=== PATIENT | male | born 1975 ===

== ENCOUNTER 2017-02-06 04:50 | Observation (INO) | payer OTHER ==
[2017-02-06] MEDS ORDERED: ACETYLCYSTEINE IVPB STA (05:17)
[2017-02-06] MEDS ORDERED: DEXTROSE 5% IVPB STA (05:17)
[2017-02-06] MEDS ORDERED: WATER IVPB STA (05:17)
[2017-02-06] MEDS ORDERED: Sodium Chloride 0.9% 1,000 ML IV STA (05:28)
[2017-02-06 05:36] LABS: BASO % 0.3 % (0.0-2.0); EOS % 0.1 % (0.0-4.0); HEMOGLOBIN 15.3 g/dL (12.0-18.0); LYMPH # 1.7 K/uL (1.0-4.3); LYMPH % 22.7 % (20.0-40.0); MEAN CELL VOLUME 93.1 fl (80.0-94.0); MEAN CORPUSCULAR HEMOGLOBIN 31.7 pg (27.0-31.0); MONO # 0.5 K/uL (0.0-0.8); MONO % 6.1 % (0.0-10.0); NEUT # 5.3 K/uL (1.8-7.0); NEUT % 70.8 % (50.0-75.0); NRBC % 0.1 % (0.0-0.0); RBC 4.83 Mil/uL (4.40-5.90); RED CELL DISTRIBUTION WIDTH 14.2 % (11.5-14.5); WHITE BLOOD COUNT 7.5 K/uL (4.8-10.8)
[2017-02-06 05:38] LABS: SALICYLATE < 1.0 mg/dl
[2017-02-06 05:39] LABS: ACETAMINOPHEN < 10.0 ug/ml (10.0-30.0); BLOOD UREA NITROGEN 9 mg/dl (9-20); CALCIUM 9.4 mg/dL (8.4-10.2); GFR AFRICAN-AMERICAN > 60; GFR NON-AFRICAN AMERICAN > 60
--- NOTE | 2017-02-06 05:55 | ED PDOC ---
HPI: Psych/Substance Abuse Time Seen by Provider: 02/06/17 05:16 Chief Complaint (Nursing): Substance Abuse Chief Complaint (Provider): Substance Abuse History Per: Patient History/Exam Limitations: no limitations Onset/Duration Of Symptoms: Hrs (x1 hr CHANNELER) Current Symptoms Are (Timing): Still Present Suicide/Self Injury Attempted (Context): Ingestion Modifying Factor(s): Alcohol, Cocaine, Other (Tylenol) Additional Complaint(s): 41 year old male presents to ED due to substance abuse and has a history of depression. Patient states he was very stressed about his upcoming wedding and lack of family support. 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 Patient denies other drug use and notes that he stopped taking Eliquis x1 month ago. (-) chest pain, SOB, or leg swelling. PCP: [facility] Past Medical History Reviewed: Historical Data, Nursing Documentation, Vital Signs Vital Signs: Last Vital Signs Temp 98.8 F 02/06/17 05:13 Pulse 120 H 02/06/17 05:13 Resp 20 02/06/17 05:13 BP 143/89 02/06/17 05:13 Pulse Ox 95 02/06/17 05:13 - Medical History PMH: Bipolar Disorder, Depression, Deep Vein Thrombosis, Schizophrenia Denies: Diabetes, Hepatitis, HIV, HTN (Denies on admission), Kidney Stones, Chronic Kidney Disease, Seizures, Sexually Transmitted Disease - Family History Family History: States: No Known Family Hx - Living Arrangements Living Arrangements: With Family - Social History Alcohol: Other (Admits) Drugs: Cocaine, Other (Tylenol) - Immunization History Hx Tetanus Toxoid Vaccination: Yes Hx Influenza Vaccination: No Hx Pneumococcal Vaccination: No - Home Medications Home Medications: Ambulatory Orders Medication Instructions Recorded OLANZapine [Zyprexa Zydis] 10 mg PO HS #30 odt 08/08/16 Apixaban [Eliquis] 5 mg PO BID #60 tab 10/04/16 Citalopram [celEXA] 20 mg PO DAILY #30 tab 10/04/16 Divalproex [Depakote DR(*BID*)] 500 mg PO BID #60 tcp 10/04/16 Gabapentin [Neurontin] 300 mg PO TID #90 cap 10/04/16 traZODone [Desyrel] 50 mg PO HS PRN #30 tab 10/04/16 Promethazine DM [Phenergan DM 10 ml PO Q6 PRN #120 bottle 10/15/16 Syrup] levoFLOXacin [Levaquin] 750 mg PO DAILY #7 tab 10/15/16 - Allergies Allergies/Adverse Reactions: Allergies Allergy/AdvReac Type Severity Reaction Status Date / Time No Known Allergies Allergy Verified 02/06/17 05:13 Review of Systems ROS Statement: Except As Marked, All Systems Reviewed And Found Negative Cardiovascular: Negative for: Chest Pain Respiratory: Negative for: Shortness of Breath Musculoskeletal: Negative for: Other (Leg swelling) Psych: Positive for: Suicidal ideation (Attempt to OD) Physical Exam - Reviewed Nursing Documentation Reviewed: Yes Vital Signs Reviewed: Yes - Physical Exam Appears: Positive for: Non-toxic. Negative for: No Acute Distress Skin: Positive for: Normal Color, Warm, Dry Eye Exam: Positive for: Normal appearance Neck: Positive for: Normal Cardiovascular/Chest: Positive for: Regular Rate, Rhythm, Tachycardia Respiratory: Positive for: Normal Breath Sounds. Negative for: Respiratory Distress Gastrointestinal/Abdominal: Positive for: Normal Exam, Soft. Negative for: Tenderness Back: Positive for: Normal Inspection Extremity: Positive for: Normal ROM. Negative for: Deformity Neurologic/Psych: Positive for: Alert, Oriented, Mood/Affect (anxious appearing) . Negative for: Motor/Sensory Deficits - Laboratory Results Result Diagrams: 02/06/17 05:26 02/06/17 05:26 - ECG O2 Sat by Pulse Oximetry: 95 (RA) Pulse Ox Interpretation: Normal Medical Decision Making Medical Decision Makin Initial impression: suicidal gesture, mild Tylenol overdose Initial plan: * EKG * Acetaminophen * EtOH serum * Labs * UDrug screen * Salicylate * NS IV 0535 Acetylcysteine will not be needed due to low amount of acetaminophen ingested. Scribe Attestation: Documented by Danna Johnson acting as a scribe for Leno Bender MD. Scribe Attestation: All medical record entries made by the Scribe were at my direction and personally dictated by me. I have reviewed the chart and agree that the record accurately reflects my personal performance of the history, physical exam, medical decision making, and the department course for this patient. I have also personally directed, reviewed, and agree with the discharge instructions and disposition. Disposition - Clinical Impression Clinical Impression: Depressed, Alcohol intoxication - Disposition Referrals: Neville Beaulieu MD [Primary Care Provider] - Disposition: Transfer of Care Disposition Time: 07:00 Condition: STABLE Patient Signed Over To: Vicki Kam Handoff Comments: Pending labs and crisis evaluation
--- NOTE | 2017-02-06 07:19 | ED PDOC ---
- Laboratory Results Result Diagrams: 02/06/17 05:26 02/06/17 10:25 - ECG O2 Sat by Pulse Oximetry: 96 Medical Decision Making Medical Decision Making: Repeat Tylenol level <10. Pt medically cleared. Disposition - Clinical Impression Clinical Impression: Substance abuse - POA Present On Arrival: None - Disposition Disposition: Routine/Home Disposition Time: 12:53 Condition: STABLE Addendum Addendum: 02/06/17 07:[address] Pt signed out by Dr[address] Bender pending repeat Tylenol level and Crisis evaluation.
[2017-02-06 07:39] LABS: BARBITURATES, UR NEGATIVE (NEGATIVE); BENZODIAZEPINES, UR NEGATIVE (NEGATIVE); OPIATES, UR NEGATIVE (NEGATIVE); PHENCYCLIDINE, UR NEGATIVE (NEGATIVE)
--- NOTE | 2017-02-06 08:41 | CARD ---
APPROVED REPORT EKG Measurement Heart [id number] CO 142P49 [id number] <Conclusion> Sinus tachycardia Otherwise normal ECG
[2017-02-06 10:46] LABS: ALB/GLOB RATIO 1.1 (1.0-2.1); ALBUMIN 4.3 g/dL (3.5-5.0); ALT/SGPT 53 U/L (21-72); AST/SGOT 30 U/L (17-59); BLOOD UREA NITROGEN 7 mg/dl (9-20); CALCIUM 9.2 mg/dL (8.4-10.2); GFR AFRICAN-AMERICAN > 60; GFR NON-AFRICAN AMERICAN > 60
[2017-02-06 11:02] LABS: PROTHROMBIN TIME 11.4 Seconds (9.8-13.1)
[2017-02-06 11:03] LABS: PARTIAL THROMBOPLASTIN TIME 24.6 Seconds (25.6-37.1)
[2017-02-06 13:05] VITALS: BP 145/93; PULSE 83; RESP 18; TEMP 97.9; O2SAT 98
== END 2017-02-06 12:52 | disposition home or self-care (01) ==
LOC: H.ER 04:50 → H.EROBSV 08:07
PROVIDERS: ADMIT Emergency Medicine; ATTEND Emergency Medicine
DX: F14.10 Cocaine abuse, uncomplicated (principal); F10.129 Alcohol abuse with intoxication, unspecified; Y90.5 Blood alcohol level of 100-119 mg/100 ml; F12.10 Cannabis abuse, uncomplicated; F20.9 Schizophrenia, unspecified; F31.9 Bipolar disorder, unspecified; Z86.718 Personal history of other venous thrombosis and embolism; Z79.01 Long term (current) use of anticoagulants

== ENCOUNTER 2017-04-22 04:49 | Observation (INO) | payer OTHER ==
[2017-04-22 05:02] VITALS: RESP 16; TEMP 97.4; O2SAT 97
[2017-04-22] MEDS ORDERED: Sodium Chloride 0.9% 1,000 ML IV STA (05:11)
--- NOTE | 2017-04-22 05:30 | ED PDOC ---
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 Patient also complains of on/ off chest pain that has persisted for months. He admits to drinking 4 beers and smoking crack cocaine, but denies any other ingestion. The patient notes taking Eliquis in the past but stopped taking it in the past few months because he "felt better". PCP: Family Provider,NO Past Medical History Reviewed: Historical Data, Nursing Documentation, Vital Signs Vital Signs: Last Vital Signs Temp 97.4 F L 04/22/17 04:59 Pulse 121 H 04/22/17 04:59 Resp 16 04/22/17 04:59 BP 151/97 H 04/22/17 04:59 Pulse Ox 97 04/22/17 04:59 - Medical History PMH: Bipolar Disorder, Depression, Deep Vein Thrombosis, Pulmonary Embolism (no longer on eliquis), Schizophrenia Denies: Diabetes, Hepatitis, HIV, HTN (Denies on admission), Kidney Stones, Chronic Kidney Disease, Seizures, Sexually Transmitted Disease - Surgical History Surgical History: No Surg Hx - Family History Family History: States: Unknown Family Hx - Social History Alcohol: Other (4 beers) Drugs: Cocaine (smoked crack cocaine) - Immunization History Hx Tetanus Toxoid Vaccination: Yes Hx Influenza Vaccination: No Hx Pneumococcal Vaccination: No - Home Medications Home Medications: Ambulatory Orders Medication Instructions Recorded OLANZapine [Zyprexa Zydis] 10 mg PO HS #30 odt 08/08/16 Apixaban [Eliquis] 5 mg PO BID #60 tab 10/04/16 Citalopram [celEXA] 20 mg PO DAILY #30 tab 10/04/16 Divalproex [Depakote DR(*BID*)] 500 mg PO BID #60 tcp 10/04/16 Gabapentin [Neurontin] 300 mg PO TID #90 cap 10/04/16 traZODone [Desyrel] 50 mg PO HS PRN #30 tab 10/04/16 Promethazine DM [Phenergan DM 10 ml PO Q6 PRN #120 bottle 10/15/16 Syrup] levoFLOXacin [Levaquin] 750 mg PO DAILY #7 tab 10/15/16 Cephalexin [Keflex] 500 mg PO TID #21 capsule 03/09/17 Naproxen [Naprosyn Tab] 250 mg PO Q8 #12 tab 03/09/17 - Allergies Allergies/Adverse Reactions: Allergies Allergy/AdvReac Type Severity Reaction Status Date / Time No Known Allergies Allergy Verified 02/06/17 05:13 Review of Systems ROS Statement: Except As Marked, All Systems Reviewed And Found Negative Cardiovascular: Positive for: Chest Pain (on/off) Psych: Positive for: Suicidal ideation Physical Exam - Reviewed Nursing Documentation Reviewed: Yes Vital Signs Reviewed: Yes - Physical Exam Appears: Positive for: No Acute Distress Head Exam: Positive for: ATRAUMATIC, NORMOCEPHALIC Skin: Positive for: Normal Color, Warm, Dry Eye Exam: Positive for: Normal appearance ENT: Positive for: Normal ENT Inspection Neck: Positive for: Normal, Supple Cardiovascular/Chest: Positive for: Tachycardia Respiratory: Positive for: Normal Breath Sounds. Negative for: Respiratory Distress Gastrointestinal/Abdominal: Positive for: Normal Exam, Soft. Negative for: Tenderness Extremity: Positive for: Normal ROM. Negative for: Deformity Neurologic/Psych: Positive for: Alert, Mood/Affect (Depressed Affect) - Laboratory Results Result Diagrams: 04/22/17 06:12 04/22/17 06:12 - ECG ECG Rhythm: Positive for: Sinus Rhythm (normal) Rate: 97 (EKG read at 05:26) O2 Sat by Pulse Oximetry: 97 (RA) Pulse Ox Interpretation: Normal Medical Decision Making Medical Decision Making: Time: 04:58 Initial Impression: cocaine induced chest pain, suicidal ideation Initial Plan: -EKG -Acetaminophen -Alcohol Serum -Labs -Drug Screen Urine -Salicylate -Troponin I -Crisis Eval -D Dimer [COAG] -CXR -NS IV -1:1 Obs -ED Obs admission -Urinalysis *All further documentation will be recorded in ED Obs section Scribe Attestation: Documented by Nilo Clayton, acting as a scribe for Leno Bender MD Provider Scribe Attestation: All medical record entries made by the Scribe were at my direction and personally dictated by me. I have reviewed the chart and agree that the record accurately reflects my personal performance of the history, physical exam, medical decision making, and the department course for this patient. I have also personally directed, reviewed, and agree with the discharge instructions and disposition. ED OBSERVATION Date of observation admission: 04/22/17 Time of observation admission: 05:23 - Observation admission statement Patient is being placed in observation because:: Pending crisis eval - Goals of Observation Goals of observation are:: Psychiatric Diagnosis - Progress Note Progress Note: 04/22/17 06:34 Patient is resting comfortably. Vitals stable. 04/22/17 06:34 Patient will be signed out to Arturo Petit MD pending crisis eval. Disposition - Clinical Impression Clinical Impression: Alcohol intoxication, Suicidal ideations, Depressed - Disposition Disposition: Transfer of Care Disposition Time: 05:23 Condition: STABLE Patient Signed Over To: Arturo Petit (at 0700) Handoff Comments: Pending crisis eval - Pt Status Changed To: Hospital Disposition Of: Observation (ED Obs)
[2017-04-22 06:03] VITALS: PULSE 97
[2017-04-22 06:14] VITALS: BP 124/84
[2017-04-22 06:19] LABS: BASO % 0.4 % (0.0-2.0); HEMATOCRIT 48.2 % (35.0-51.0); LYMPH # 1.4 K/uL (1.0-4.3); LYMPH % 17.7 % (20.0-40.0); MEAN CELL VOLUME 93.3 fl (80.0-94.0); MEAN CORPUSCULAR HEMOGLOBIN 32.2 pg (27.0-31.0); MEAN CORPUSCULAR HGB CONC 34.5 g/dL (33.0-37.0); MEAN PLATELET VOLUME 8.4 fl (7.2-11.7); MONO # 0.5 K/uL (0.0-0.8); MONO % 5.7 % (0.0-10.0); NEUT # 6.1 K/uL (1.8-7.0); NEUT % 76.2 % (50.0-75.0); NRBC % 0.4 % (0.0-0.0); RED CELL DISTRIBUTION WIDTH 12.1 % (11.5-14.5)
[2017-04-22 06:23] LABS: RBC URINE 1 /hpf (0-3); URINE BILIRUBIN NEGATIVE (NEGATIVE); URINE BLOOD SMALL (NEGATIVE); URINE COLOR STRAW (YELLOW); URINE GLUCOSE (UA) NEG (Normal); URINE KETONE NEGATIVE (NEGATIVE); URINE LEUKOCYTE ESTERASE NEG Leu/uL (Negative); URINE PROTEIN NEGATIVE (NEGATIVE); URINE UROBILINOGEN 0.2-1.0 mg/dL (0.2-1.0); WBC URINE < 1 /hpf (0-5)
[2017-04-22 06:30] LABS: ALCOHOL SERUM 159 mg/dl (0-10); BLOOD UREA NITROGEN 6 mg/dl (9-20); CALCIUM 9.5 mg/dL (8.4-10.2); CARBON DIOXIDE 20 mmol/L (22-30); CHLORIDE 107 mmol/L (98-107); GFR AFRICAN-AMERICAN > 60; GLUCOSE,RANDOM 125 mg/dL (75-110); POTASSIUM 3.6 MMOL/L (3.6-5.0); SODIUM 144 mmol/l (132-148)
[2017-04-22] MEDS ORDERED: Sodium Chloride 0.9% 50 ML IV ONE (07:05)
[2017-04-22] MEDS ORDERED: Iodixanol 320 MG/ML 100 ML BOTTLE IV ONE (07:05)
--- NOTE | 2017-04-22 08:33 | CARD ---
APPROVED REPORT EKG Measurement Heart [id number] ME 154P55 [id number] <Conclusion> Normal sinus rhythm Normal ECG
--- NOTE | 2017-04-22 09:52 | ED PDOC ---
- Laboratory Results Result Diagrams: 04/22/17 06:12 04/22/17 06:12 - ECG O2 Sat by Pulse Oximetry: 97 (RA) Disposition - Clinical Impression Clinical Impression: Alcohol intoxication, Suicidal ideations, Depressed, Polysubstance abuse - POA Present On Arrival: None - Disposition Disposition: Routine/Home Disposition Time: 09:52 Condition: FAIR
--- NOTE | 2017-04-22 10:39 | CT ---
PROCEDURE: CT Chest with contrast (Pulmonary Angiogram) HISTORY: r/o PE COMPARISON: Comparison is made to 10/11/2016 TECHNIQUE: Axial computed tomography images were obtained of the chest in the pulmonary arterial phase of enhancement. Coronal and sagittal reformatted images were created and reviewed. Intravenous contrast dose: 80 mL of Visipaque 320. Radiation dose: Total exam DLP = 367.7 mGy-cm. This CT exam was performed using one or more of the following dose reduction techniques: Automated exposure control, adjustment of the mA and/or kV according to patient size, and/or use of iterative reconstruction technique. FINDINGS: PULMONARY ARTERIES: Unremarkable. No pulmonary embolism. AORTA: No acute findings. No thoracic aortic aneurysm. LUNGS: No evidence of pneumonia or mass lesion in the lungs. PLEURAL SPACES: Unremarkable. No effusion or pneuomothorax. HEART: The heart is mildly to moderately enlarged. No evidence of pericardial effusion. LYMPH NODES: No lymphadenopathy. BONES, CHEST WALL: Unremarkable. No fracture or destructive lesion OTHER FINDINGS: Unremarkable. IMPRESSION: No evidence of pulmonary embolus. Cardiomegaly. No evidence of pneumonia or acute pathology in the lungs. .
--- NOTE | 2017-04-22 14:04 | RAD ---
HISTORY: cp, si COMPARISON: Comparison chest 10/24/2016 FINDINGS: LUNGS: Poor inspiration with low lung volumes, crowded bronchovascular markings and mild bibasilar atelectasis. Central pulmonary vasculature is slightly increased though this is felt to be due low lung volumes as well. PLEURA: No significant pleural effusion identified, no pneumothorax apparent. CARDIOVASCULAR: Heart appears enlarged. OSSEOUS STRUCTURES: No significant abnormalities. VISUALIZED UPPER ABDOMEN: Normal. OTHER FINDINGS: None. IMPRESSION: Poor inspiration with low lung volumes, crowded bronchovascular markings and mild bibasilar atelectasis. Central pulmonary vasculature is slightly increased though this is felt to be due low lung volumes as well.
== END 2017-04-22 10:50 | disposition home or self-care (01) ==
LOC: H.ER 04:49 → H.EROBSV 05:23
PROVIDERS: ADMIT Emergency Medicine; ATTEND Emergency Medicine
DX: F10.129 Alcohol abuse with intoxication, unspecified (principal); F14.188 Cocaine abuse with other cocaine-induced disorder; R07.9 Chest pain, unspecified; R45.851 Suicidal ideations; F32.9 Major depressive disorder, single episode, unspecified; Z86.711 Personal history of pulmonary embolism; Y90.6 Blood alcohol level of 120-199 mg/100 ml; Z86.718 Personal history of other venous thrombosis and embolism
CPT/HCPCS: 36415; 71010; 71275; 80048; 80320; 80324; 80329; 80345; 80346; 80349; 80353; 80358; 80361; 81003; 83992; 84484; 85025; 85378; 93005; 99284; G0378; Q9967

== ENCOUNTER 2017-12-22 04:21 | Inpatient (IN) | payer SELFPAY ==
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
[2017-12-22 05:51] LABS: BASO # 0.1 K/uL (0.0-0.2); BASO % 0.7 % (0.0-2.0); EOS % 0.4 % (0.0-4.0); HEMOGLOBIN 16.5 g/dL (12.0-18.0); LYMPH # 3.3 K/uL (1.0-4.3); LYMPH % 36.6 % (20.0-40.0); MEAN CELL VOLUME 91.7 fl (80.0-94.0); MEAN CORPUSCULAR HEMOGLOBIN 32.3 pg (27.0-31.0); MEAN CORPUSCULAR HGB CONC 35.2 g/dL (33.0-37.0); MEAN PLATELET VOLUME 7.4 fl (7.2-11.7); MONO # 0.6 K/uL (0.0-0.8); MONO % 6.9 % (0.0-10.0); NEUT % 55.4 % (50.0-75.0); NRBC % 0.1 % (0.0-0.0); RBC 5.09 Mil/uL (4.40-5.90); RED CELL DISTRIBUTION WIDTH 12.9 % (11.5-14.5)
[2017-12-22 06:01] LABS: ALBUMIN 4.4 g/dL (3.5-5.0); ALT/SGPT 128 U/L (21-72); AST/SGOT 61 U/L (17-59); BLOOD UREA NITROGEN 9 mg/dl (9-20); CALCIUM 9.1 mg/dL (8.4-10.2); GFR AFRICAN-AMERICAN > 60; GFR NON-AFRICAN AMERICAN > 60
[2017-12-22 06:11] LABS: BARBITURATES, UR NEGATIVE (NEGATIVE); BENZODIAZEPINES, UR NEGATIVE (NEGATIVE); OPIATES, UR NEGATIVE (NEGATIVE); PHENCYCLIDINE, UR NEGATIVE (NEGATIVE)
--- NOTE | 2017-12-22 09:13 | RAD ---
HISTORY: admit COMPARISON: 04/22/2017 FINDINGS: LUNGS: No active pulmonary disease. PLEURA: No significant pleural effusion identified, no pneumothorax apparent. CARDIOVASCULAR: Normal. OSSEOUS STRUCTURES: No significant abnormalities. VISUALIZED UPPER ABDOMEN: Normal. OTHER FINDINGS: None. IMPRESSION: No active disease.
[2017-12-22 09:42] VITALS: BP 128/81; PULSE 89; RESP 20; TEMP 98
--- NOTE | 2017-12-22 10:44 | CARD ---
APPROVED REPORT EKG Measurement Heart [id number] ND 172P41 [id number] <Conclusion> Normal sinus rhythm Nonspecific ST and T wave abnormality Abnormal ECG
--- NOTE | 2017-12-22 14:29 | PCM.BM ---
Treatment Plan Problems - Problems identified on initial assessmt feelings of worthlessness Date Initiated: 12/22/17 Time Initiated: 14:28 Assessment reference: NA Status: Active FEELINGS OF WORTHLINESS Time Initiated: Assessment reference: NA FEELINGS OF WORTHLLESSNESS Assessment reference: NA Status: Active FEELINGS OF WORTHLESSNESS Date Initiated: 12/22/17 Time Initiated: 14:28 Assessment reference: NA Status: Active Treatment assets and liabiliti Patient Assests: resourceful, self-reliant, ADL independent, physically healthy , negotiates basic needs Patient Liabilities: financial problems, relationship conflicts, substance abuse - Milieu Protocol Maintain good personal hygiene: daily Encourage regular showers, daily Remind patient to perform daily oral care, daily Assist patient to perform ADL's Conduct patient checks and document Observation sheet: Q15 minutes Maintain personal safety: every shift Educate patient to report safety concerns to staff, every shift Monitor environment for contraband/sharps Medication safety: Monitor for expected outcome, potential side effects: every shift, Assess barriers to learning: every shift, Assess readiness for medication education: every shift
[2017-12-22] MEDS ORDERED: Magnesium Hydroxide Susp 30 ml UD PO PRN (16:55)
[2017-12-22] MEDS ORDERED: DiphenhydrAMINE 50 mg/ml Inj IM PRN (16:55)
[2017-12-22] MEDS ORDERED: Alum-Mag Hydrox-Simethicone Susp (30 mL) PO PRN (16:55)
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
--- NOTE | 2017-12-22 18:29 | PCM.BM ---
Treatment Plan Problems - Problems identified on initial assessmt feelings of worthliness Date Initiated: 12/22/17 Time Initiated: 14:28 Assessment reference: NA Status: Active FEELINGS OF WORTHLINESS Date Initiated: 12/22/17 Status: Active FEELINGS OF WORTHLLESSNESS Date Initiated: 12/22/17 Time Initiated: 14:28 FEELINGS OF WORTHLESSNESS Date Initiated: 12/22/17 Time Initiated: 18:28 Assessment reference: NA Status: Active Treatment assets and liabiliti Patient Assests: cooperative, ADL independent, physically healthy, good support system Patient Liabilities: financial problems, relationship conflicts, substance abuse - Milieu Protocol Maintain good personal hygiene: daily Encourage regular showers, daily Remind patient to perform daily oral care, daily Assist patient to perform ADL's Conduct patient checks and document Observation sheet: Q15 minutes Maintain personal safety: every shift Educate patient to report safety concerns to staff, every shift Monitor environment for contraband/sharps Medication safety: Monitor for expected outcome, potential side effects: every shift, Assess barriers to learning: every shift, Assess readiness for medication education: every shift Milieu Narrative: inpt admission per attending vital signs and clinical assessment per protocol and per clinical status hospitalist consult prns per protocol assess for possible withdrawal although pt reports episodic binge drinking was singular occurrence day prior and day of admission disccharge planning progress Discharge/Continuing Care - Treatment Team Participation Patient/Family/SO Statement: inpt admission per attending vital signs and clinical assessment per protocol and per clinical status hospitalist consult prns per protocol assess for possible withdrawal although pt reports episodic binge drinking was singular occurrence day prior and day of admission disccharge planning progress
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
[2017-12-22 22:12] VITALS: O2SAT 98
== END 2017-12-22 20:45 | disposition left against medical advice (07) | DRG 894 ==
LOC: H.ER 04:21 → H.ERHOLD 06:21 → H.PSYCH 09:49
PROVIDERS: ADMIT Psychiatry & Neurology Psychiatry; ATTEND Psychiatry & Neurology Psychiatry
DX: F10.929 Alcohol use, unspecified with intoxication, unspecified (principal); Y90.6 Blood alcohol level of 120-199 mg/100 ml; Z86.711 Personal history of pulmonary embolism; Z91.14 Patient's other noncompliance with medication regimen; Z86.718 Personal history of other venous thrombosis and embolism

== ENCOUNTER 2018-01-18 05:35 | Inpatient (IN) | payer OTHER ==
[2018-01-18] MEDS ORDERED: Sodium Chloride 0.9% 1,000 ML IV STA (06:21)
[2018-01-18 06:29] LABS: BASO % 0.5 % (0.0-2.0); EOS % 0.1 % (0.0-4.0); HEMOGLOBIN 16.3 g/dL (12.0-18.0); LYMPH # 1.7 K/uL (1.0-4.3); LYMPH % 17.7 % (20.0-40.0); MEAN CELL VOLUME 92.3 fl (80.0-94.0); MEAN CORPUSCULAR HEMOGLOBIN 32.3 pg (27.0-31.0); MEAN PLATELET VOLUME 7.9 fl (7.2-11.7); MONO # 0.4 K/uL (0.0-0.8); MONO % 4.7 % (0.0-10.0); NEUT # 7.2 K/uL (1.8-7.0); NRBC % 0.1 % (0.0-0.0); RBC 5.05 Mil/uL (4.40-5.90); RED CELL DISTRIBUTION WIDTH 12.6 % (11.5-14.5); WHITE BLOOD COUNT 9.4 K/uL (4.8-10.8)
--- NOTE | 2018-01-18 06:29 | ED PDOC ---
HPI: Psych/Substance Abuse Time Seen by Provider: 01/18/18 05:46 Chief Complaint (Nursing): Psychiatric Evaluation Chief Complaint (Provider): psychiatrc evaluation History Per: Patient History/Exam Limitations: no limitations Onset/Duration Of Symptoms: Days Current Symptoms Are (Timing): Still Present Suicide/Self Injury Attempted (Context): Ingestion (x6 tablets of unknown painkiller pills) Associated Symptoms: Suicidal Thoughts, Suicidal Plan Involuntary Hold By: None Additional Complaint(s): Billy Underwood is a 42 year old male, with a past medical history of depression and drug abuse, who presents to the emergency department for suicidal ideation. Patient reports feeling suicidal stating he has no family support. Patient reports sniffing "three 20s" of cocaine and ingesting x6 tablets of unknown painkillers that his friend gave him. He denies any other drug or alcohol use. He denies any chest pain or shortness of breath. No further medical complaints. PMD: None provided. Past Medical History Reviewed: Historical Data, Nursing Documentation, Vital Signs Vital Signs: Last Vital Signs Temp 98.9 F 01/18/18 05:39 Pulse 113 H 01/18/18 05:39 Resp 16 01/18/18 05:39 BP 149/82 01/18/18 05:39 Pulse Ox 96 01/18/18 05:39 - Medical History PMH: Anxiety, Bipolar Disorder, Depression, Deep Vein Thrombosis, Pulmonary Embolism (no longer on eliquis), Schizophrenia Denies: Diabetes, Hepatitis, HIV, HTN (Denies on admission), Kidney Stones, Chronic Kidney Disease, Seizures, Sexually Transmitted Disease - Surgical History Surgical History: No Surg Hx - Family History Family History: States: Unknown Family Hx - Social History Current smoker - smoking cessation education provided: Yes (Current some days smoker) Alcohol: Social Drugs: Cocaine - Immunization History Hx Tetanus Toxoid Vaccination: Yes Hx Influenza Vaccination: No Hx Pneumococcal Vaccination: No - Home Medications Home Medications: Ambulatory Orders Medication Instructions Recorded No Known Home Med 01/18/18 - Allergies Allergies/Adverse Reactions: Allergies Allergy/AdvReac Type Severity Reaction Status Date / Time No Known Allergies Allergy Verified 02/06/17 05:13 Review of Systems ROS Statement: Except As Marked, All Systems Reviewed And Found Negative Cardiovascular: Negative for: Chest Pain Respiratory: Negative for: Shortness of Breath Psych: Positive for: Suicidal ideation Physical Exam - Reviewed Nursing Documentation Reviewed: Yes Vital Signs Reviewed: Yes - Physical Exam Appears: Positive for: Non-toxic Head Exam: Positive for: ATRAUMATIC, NORMOCEPHALIC Skin: Positive for: Normal Color, Warm, Dry Eye Exam: Positive for: Normal appearance, EOMI, PERRL Neck: Positive for: Painless ROM, Supple Cardiovascular/Chest: Positive for: Regular Rate, Rhythm. Negative for: Murmur Respiratory: Positive for: Normal Breath Sounds. Negative for: Respiratory Distress Gastrointestinal/Abdominal: Positive for: Normal Exam, Soft. Negative for: Tenderness, Guarding, Rebound Back: Negative for: L CVA Tenderness, R CVA Tenderness, Vertebral Tenderness Extremity: Positive for: Normal ROM (upper and lower extremities). Negative for : Deformity, Swelling Neurologic/Psych: Positive for: Alert, Oriented, Mood/Affect (depressed) - Laboratory Results Result Diagrams: 01/18/18 06:15 01/18/18 06:15 - ECG O2 Sat by Pulse Oximetry: 96 (RA) Pulse Ox Interpretation: Normal Medical Decision Making Medical Decision Making: Time: 05:46 A/P: 42 y/o male presents with suicidal ideation w/ attempt by using drugs. -Patient is well appearing at this time with normal mentation. Will get medical clearance from blood work and urine studies, will get crisis evaluation Plan: --EKG --Acetaminophen --Alcohol serum --BMP --Drug screen, urine --Salicylate --CBC w/ differential --Sodium Chloride 1,000 ml IV 1,000 mls/hr --1:1 Observation --Urinalysis --Reevaluation 07:00 -Patient will be endorsed to Dr. Kam, pending labs and reevaluation. ----- Scribe Attestation: Documented by Glen Isaacs, acting as a scribe for Leno Bender MD. Provider Scribe Attestation: All medical record entries made by the Scribe were at my direction and personally dictated by me. I have reviewed the chart and agree that the record accurately reflects my personal performance of the history, physical exam, medical decision making, and the department course for this patient. I have also personally directed, reviewed, and agree with the discharge instructions and disposition. Disposition - Clinical Impression Clinical Impression: Major depression - Patient ED Disposition Is Patient to be Admitted: Transfer of Care - Disposition Disposition: Transfer of Care Disposition Time: 07:00 Condition: STABLE Patient Signed Over To: Vicki Kam Handoff Comments: pending labs, crisis eval, and reevaluation
[2018-01-18 06:36] LABS: SQUAMOUS EPITHIAL < 1 /hpf (0-5); URINE BILIRUBIN NEGATIVE (NEGATIVE); URINE BLOOD MODERATE (NEGATIVE); URINE CLARITY SLIGHTY-CLOUDY (Clear); URINE COLOR YELLOW (YELLOW); URINE GLUCOSE (UA) NEG (Normal); URINE HYALINE CAST 0-2 /hpf (0-2); URINE LEUKOCYTE ESTERASE NEG Leu/uL (Negative); URINE PROTEIN 30 mg/dL (NEGATIVE); URINE UROBILINOGEN 0.2-1.0 mg/dL (0.2-1.0)
[2018-01-18 06:41] LABS: BLOOD UREA NITROGEN 8 mg/dl (9-20); CALCIUM 9.1 mg/dL (8.4-10.2); GFR AFRICAN-AMERICAN > 60; GFR NON-AFRICAN AMERICAN > 60
[2018-01-18 07:05] LABS: BARBITURATES, UR NEGATIVE (NEGATIVE); BENZODIAZEPINES, UR NEGATIVE (NEGATIVE); OPIATES, UR NEGATIVE (NEGATIVE); PHENCYCLIDINE, UR NEGATIVE (NEGATIVE)
--- NOTE | 2018-01-18 07:16 | ED PDOC ---
- Laboratory Results Result Diagrams: 01/18/18 06:15 01/18/18 06:15 - ECG O2 Sat by Pulse Oximetry: 96 (RA) Medical Decision Making Medical Decision Makin:00 Patient care is endorsed from Dr. Bender to Dr. Kam pending labs and reevaluation. Scribe Attestation: Documented by Amanda Arita, acting as a scribe for Vicik Kam MD. Provider Scribe Attestation: All medical entries made by the Scribe were at my direction and personally dictated by me. I have reviewed the chart and agree that the record accurately reflects my personal performance of the history, physical exam, medical decision making, and the department course for this patient. I have also personally directed, reviewed, and agree with the discharge instructions and disposition. Disposition - Clinical Impression Clinical Impression: Substance induced mood disorder - POA Present On Arrival: None - Disposition Disposition: Admitted as In-Patient Disposition Time: 08:13 Condition: STABLE
[2018-01-18] MEDS ORDERED: Alum-Mag Hydrox-Simethicone Susp (30 mL) PO PRN (10:37)
[2018-01-18] MEDS ORDERED: Magnesium Hydroxide Susp 30 ml UD PO PRN (10:37)
[2018-01-18] MEDS ORDERED: DiphenhydrAMINE 50 mg/ml Inj IM PRN (10:37)
--- NOTE | 2018-01-18 12:43 | PCM.BM ---
<Maxx Herman - Last Filed: 01/18/18 12:41> Treatment Plan Problems - Problems identified on initial assessmt Hopelessness/Helplessness Date Initiated: 01/18/18 Time Initiated: 12:00 Assessment reference: NA Status: Active Treatment assets and liabiliti Patient Assests: cooperative, educated, insightful, ADL independent, physically healthy, good support system Patient Liabilities: financial problems, relationship conflicts, substance abuse - Milieu Protocol Maintain good personal hygiene: every shift Encourage regular showers, every shift Remind patient to perform daily oral care, every shift Assist patient to perform ADL's Maintain personal safety: every shift Educate patient to report safety concerns to staff, every shift Monitor environment for contraband/sharps Medication safety: Monitor for expected outcome, potential side effects: every shift, Assess barriers to learning: every shift, Assess readiness for medication education: every shift <Nash Allan - Last Filed: 01/22/18 18:42> Family Contact Family involvement: Family/SO is involved Family contact: Patient declines to allow family contact at present Family contact name: Pt declined. - Outside Agency Agency 1 Care involvment: Information-sharing Agency contact name: Vincent Carvajal Agency contact number: [phone] - Goals for Treatment Patient goals for treatment: Pt is future focused and discharged focus and is requesting to follow-up with vincent cruz upon discharge. Pt reported that the current medications are helping his mood. Discharge/Continuing Care - Education Needs Education Needs: Patient Medication, Patient Diagnosis/Disease Process, Patient Coping Skills, Patient Community resources, Patient Aftercare Safety Plan - Discharge Discharge Criteria: Tolerates medication w/o severe side effects, Free of Suicidal thoughts, Free of paranoid thoughts, Free of agitation, Normal sleep pattern, Ability to care for self, No longer exhibiting s/s of withdrawal, Reduction of target symptoms Discharge to:: Home, With Family - Treatment Team Participation Patient/Family/SO Statement: 01/22/18 18:45 Pt spoke about his he still experiences auditory hallucinations, but reported that he then prays and feels that the hallucinations lessen. It was discussed with pt that his Wellbutrin and Risperdal will be increased. Discussed with Family/SO: No Was Patient/Family/SO present at Treatment Team Meeting: Yes <Byron Szymanski - Last Filed: 01/23/18 10:10> - Diagnosis (1) Substance induced mood disorder Status: Acute Interventions: motivational therapy 01/23/18 10:10
--- NOTE | 2018-01-18 17:36 | CP.PCM.HP ---
History of Present Illness - History of Present Illness History of Present Illness: 42 year old male, with PMHX remarkable for DVT/PE, and extensive psych history, presented to [facility] ED last night for evaluation of suicidal ideation. He reports he felt lonely and had no family support, causing him to think about harming himself. He reports he sniffed approx "three 20s" of cocaine and ingested about 6 tablets of unknown painkillers that his friend gave him. He also reports consuming between 2-4 beers last night. He reports having suicidal ideation at the time, but with no plan. He currently denies any suicidal ideation at bedside. He reports he has been generally in a state of good health otherwise. He currently denies any fevers/chills, headaches, changes in vision, CP/SOB/Palpitations, N/V/D/C, urinary symptoms, leg/calf pain, SI/HI, visual/ auditory hallucinations. ROS: 12 systems reviewed, found to be negative, unless otherwise mentioned in HPI PMD: FLY/Jake last vist 10/2016 PMHx: DVT/PE 2017, MTHFR mutation, HepC-active, Depression, Bipolar Schziophrenia Meds: pt does not remember med list, d/c'ed Eliquis on his own 8 months ago PSsurgHx: Denies FamilyHx: unknown SocialHx: occasional ETOH, intermittent illicit drug abuse (cocaine) ALL: NKDA Present on Admission - Present on Admission Any Indicators Present on Admission: Yes History of DVT/PE: Yes History of Uncontrolled Diabetes: No Urinary Catheter: No Decubitus Ulcer Present: No Review of Systems - Review of Systems All systems: reviewed and no additional remarkable complaints except (as per HPI ) Past Patient History - Past Medical History & Family History Past Medical History?: Yes Past Family History: Reviewed and not pertinent - Past Social History Alcohol: Social Drugs: Cocaine - CARDIAC Hx Cardiac Disorders: No - PULMONARY Hx Tuberculosis: No - NEUROLOGICAL HX Cerebrovascular Accident: No Hx Seizures: No - HEENT Hx HEENT Problems: No - RENAL Hx Chronic Kidney Disease: No Hx Kidney Stones: No - ENDOCRINE/METABOLIC Hx Endocrine Disorders: Yes - HEMATOLOGICAL/ONCOLOGICAL Hx Cancer: No Hx Human Immunodeficiency Virus (HIV): No - INTEGUMENTARY Hx Dermatological Problems: No - MUSCULOSKELETAL/RHEUMATOLOGICAL Hx Musculoskeletal Disorders: No Hx Falls: No - GASTROINTESTINAL Hx Gastrointestinal Disorders: No - GENITOURINARY/GYNECOLOGICAL Hx Sexually Transmitted Disorders: No - PSYCHIATRIC Hx Substance Use: Yes - SURGICAL HISTORY Hx Surgeries: No - ANESTHESIA Hx Anesthesia: No Hx Anesthesia Reactions: No Hx Malignant Hyperthermia: No Meds Allergies/Adverse Reactions: Allergies Allergy/AdvReac Type Severity Reaction Status Date / Time No Known Allergies Allergy Verified 02/06/17 05:13 Physical Exam - Constitutional Appears: Well, Non-toxic, No Acute Distress - Head Exam Head Exam: ATRAUMATIC, NORMAL INSPECTION, NORMOCEPHALIC - Eye Exam Eye Exam: EOMI, Normal appearance. absent: Conjunctival injection, Nystagmus, Scleral icterus Pupil Exam: NORMAL ACCOMODATION, PERRL - ENT Exam ENT Exam: Mucous Membranes Moist, Normal Exam - Neck Exam Neck exam: Negative for: Lymphadenopathy, Thyromegaly - Respiratory Exam Respiratory Exam: Clear to Auscultation Bilateral, NORMAL BREATHING PATTERN. absent: Accessory Muscle Use, Rales, Rhonchi, Wheezes - Cardiovascular Exam Cardiovascular Exam: REGULAR RHYTHM, RRR, +S1, +S2. absent: Bradycardia, Tachycardia, Diastolic murmur, JVD, Rubs, Systolic Murmur - GI/Abdominal Exam GI & Abdominal Exam: Normal Bowel Sounds, Soft. absent: Guarding, Organomegaly , Pulsatile Mass, Rebound, Rigid, Tenderness - Extremities Exam Extremities exam: Positive for: full ROM, normal capillary refill, normal inspection, pedal pulses present. Negative for: calf tenderness, joint swelling , pedal edema, tenderness - Back Exam Back exam: NORMAL INSPECTION - Neurological Exam Neurological exam: Alert, CN II-XII Intact, Normal Gait, Oriented x3, Reflexes Normal - Psychiatric Exam Psychiatric exam: Flat Affect - Skin Skin Exam: Dry, Intact, Normal Color, Warm Results - Vital Signs Recent Vital Signs: Last Vital Signs Temp 97.9 F 01/18/18 12:02 Pulse 93 H 01/18/18 12:02 Resp 16 01/18/18 12:02 BP 126/76 01/18/18 12:02 Pulse Ox 100 01/18/18 12:02 - Labs Result Diagrams: 01/18/18 06:15 01/18/18 06:15 Labs: Laboratory Results - last 24 hr 01/18/18 01/18/18 01/18/18 05:56 06:15 06:15 WBC 9.4 RBC 5.05 Hgb 16.3 Hct 46.7 MCV 92.3 MCH 32.3 H MCHC 35.0 RDW 12.6 Plt Count 292 MPV 7.9 Neut % (Auto) 77.0 H Lymph % (Auto) 17.7 L [place] % (Auto) 4.7 Eos % (Auto) 0.1 Baso % (Auto) 0.5 Neut # (Auto) 7.2 H Lymph # (Auto) 1.7 [place] # (Auto) 0.4 Eos # (Auto) 0.0 Baso # (Auto) 0.0 Sodium 143 Potassium 4.0 Chloride 105 Carbon Dioxide 20 L Anion Gap 22 H BUN 8 L Creatinine 0.7 L Est GFR ( Amer) > 60 Est GFR (Non-Af Amer) > 60 POC Glucose (mg/dL) Random Glucose 127 H Calcium 9.1 Urine Color Urine Clarity Urine pH Ur Specific [place] Urine Protein Urine Glucose (UA) Urine Ketones Urine Blood Urine Nitrate Urine Bilirubin Urine Urobilinogen Ur Leukocyte Esterase Urine RBC (Auto) Urine Microscopic WBC Ur Squamous Epith Cells Hyaline Casts Salicylates Urine Opiates Screen Urine Methadone Screen Acetaminophen < 10.0 L Ur Barbiturates Screen Ur Phencyclidine Scrn Ur Amphetamines Screen U Benzodiazepines Scrn U Oth Cocaine Metabols U Cannabinoids Screen Alcohol, Quantitative 45 H 01/18/1818 01/18/18 06:15 06:15 06:15 WBC RBC Hgb Hct MCV MCH MCHC RDW Plt Count MPV Neut % (Auto) Lymph % (Auto) [place] % (Auto) Eos % (Auto) Baso % (Auto) Neut # (Auto) Lymph # (Auto) [place] # (Auto) Eos # (Auto) Baso # (Auto) Sodium Potassium Chloride Carbon Dioxide Anion Gap BUN Creatinine Est GFR ( Amer) Est GFR (Non-Af Amer) POC Glucose (mg/dL) Random Glucose Calcium Urine Color Yellow Urine Clarity Slighty-cloudy Urine pH 5.0 Ur Specific [place] 1.017 Urine Protein 30 Urine Glucose (UA) Neg Urine Ketones Negative Urine Blood Moderate Urine Nitrate Negative Urine Bilirubin Negative Urine Urobilinogen 0.2-1.0 Ur Leukocyte Esterase Neg Urine RBC (Auto) 2 Urine Microscopic WBC 1 Ur Squamous Epith Cells < 1 Hyaline Casts 0-2 Salicylates < 1.0 Urine Opiates Screen Negative Urine Methadone Screen Negative Acetaminophen Ur Barbiturates Screen Negative Ur Phencyclidine Scrn Negative Ur Amphetamines Screen Negative U Benzodiazepines Scrn Negative U Oth Cocaine Metabols Positive H U Cannabinoids Screen Positive H Alcohol, Quantitative 01/18/18 06:26 WBC RBC Hgb Hct MCV MCH MCHC RDW Plt Count MPV Neut % (Auto) Lymph % (Auto) [place] % (Auto) Eos % (Auto) Baso % (Auto) Neut # (Auto) Lymph # (Auto) [place] # (Auto) Eos # (Auto) Baso # (Auto) Sodium Potassium Chloride Carbon Dioxide Anion Gap BUN Creatinine Est GFR ( Amer) Est GFR (Non-Af Amer) POC Glucose (mg/dL) 119 H Random Glucose Calcium Urine Color Urine Clarity Urine pH Ur Specific [place] Urine Protein Urine Glucose (UA) Urine Ketones Urine Blood Urine Nitrate Urine Bilirubin Urine Urobilinogen Ur Leukocyte Esterase Urine RBC (Auto) Urine Microscopic WBC Ur Squamous Epith Cells Hyaline Casts Salicylates Urine Opiates Screen Urine Methadone Screen Acetaminophen Ur Barbiturates Screen Ur Phencyclidine Scrn Ur Amphetamines Screen U Benzodiazepines Scrn U Oth Cocaine Metabols U Cannabinoids Screen Alcohol, Quantitative Assessment & Plan - Assessment and Plan (Free Text) Assessment: 42 y/o male with PMHx of PE/DVT, extensive psych history admitted [facility] for suicidal ideation. Plan: 1) Suicidal Ideation -currently denies -as per psych team 2) Depression -as per psych team 3) History of PE/DVT -asymptomatic -dc'ed eliquis on his own 8 months ago -ambulation 4) MTHFR Gene Mutation -start aspirin 81 qd 5) Hepatitis C -outpatient evaluation with Dr. Blakely pending 6) Diet -regular 7) Health Maintenance -Hemoglobin A1C: pending -Lipid Panel: pending -RPR: pending
[2018-01-19 07:54] LABS: T4 7.56 ug/dl (5.5-11.0)
--- NOTE | 2018-01-19 08:00 | PCM.PSYCH ---
Initial Psychiatric Evaluation - Initial Psychiatric Evaluation Type of Admission: Voluntary Legal Status: Capacity Chief Complaint (in patient's own words): "I'm depressed." Patient's Reaction to Hospitalization: HPI: 42 yo male, presents w/ worsening depression, anxiety and suicidal ideation (w/o plan) in the context of conflict with his family, non-compliance with psychiatric treatment or medications and cocaine and alcohol abuse. Patient states that he used $200 worth of crack cocaine due to feeling stressed and depressed. He also reports that he drank 20 beers. He reports that he continues to have intermittent thoughts of suicide, but denied active ideation/ plan/intent at this time and was able to contract for safety on the unit. He reports that he has heard AH yesterday and reports that he hears AH intermittently, even when he is not abusing cocaine. +Sleep/appetite disturbances +Feelings of hopelessness +Anhedonia PPHx: H/o two previous psychiatric admissions; He was treated w/ Celexa, Risperdal, Trazodone and Ativan in the past and would like to restart these medications as he believes they were helpful. He has been non-compliant for > a year. No current outpatient psychiatric treatment. 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, lives w/ , has an 8 yr child w/ a different woman ALL: NKDA Current Medications: Active Medications Generic Name Dose Route Start Last Admin Trade Name Freq PRN Reason Stop Dose Admin Acetaminophen 650 mg 01/18/18 10:37 01/18/18 12:38 Tylenol 325mg Tab PO 650 mg Q4 PRN Administration Pain, moderate (4-7) Al Hydrox/Mg Hydrox/Simethicone 30 ml 01/18/18 10:37 Maalox Plus 30 Ml PO Q4 PRN Dyspepsia Aspirin 81 mg 01/19/18 09:00 Aspirin Chewable PO DAILY [facility] Diphenhydramine HCl 50 mg 01/18/18 10:37 Benadryl IM Q6 PRN Extrapyramidal S/S Unable PO Diphenhydramine HCl 50 mg 01/18/18 10:37 01/18/18 21:08 Benadryl PO 50 mg Q6 PRN Administration Extrapyramidal Symptoms Diphenhydramine HCl 50 mg 01/18/18 21:07 Benadryl PO HS PRN Sleep Haloperidol 5 mg 01/18/18 10:37 Haldol PO Q4 PRN Agitation Haloperidol Lactate 5 mg 01/18/18 10:37 Haldol IM Q4 PRN Agitation, Unable to Take PO Lorazepam 1 mg 01/18/18 21:13 Ativan PO Q8 PRN for severe agitation Magnesium Hydroxide 30 ml 01/18/18 10:37 Milk Of Magnesia PO HS PRN Constipation Past Psychiatric History - Past Psychiatric History Previous Treatment History: Inpatient Pertinent Medical Hx (Current Medical&Sleep Prob, Allergies): Allergies Allergy/AdvReac Type Severity Reaction Status Date / Time No Known Allergies Allergy Verified 02/06/17 05:13 No Known Home Med 01/18/18 Review of Systems - Psychiatric Psychiatric: As Per HPI, Abnormal Sleep Pattern, Anhedonia, Anxiety, Auditory Hallucinations, Change in Appetite, Depression, Difficulty Concentrating, Hallucinations, Hopelessness, Irritability, Mood Swings, Suicidal Ideation Mental Status Examination - Personal Presentation Personal Presentation: Looks stated age - Affect Affect: Constricted, Depressed - Motor Activity Motor Activity: Calm - Reliability in Providing Information Reliability in Providing Information: Fair - Speech Speech: Organized, Coherent - Mood Mood: Depressed, Anxious - Formal Thought Process Formal Thought Process: Hallucinations (Intermittent AH, last heard yesterday) - Hallucinations/Delusions Hallucinations: Auditory - Obsessions/Compulsions Obsessions: No Compulsions: No - Cognitive Functions Orientation: Person, Place, Situation, Time Sensorium: Alert Attention/Concentration: Attentive Estimate of Intelligence: Average Judgement: Intact, as evidence by: Insight regarding need for hospitalization Memory: Recent intact, as evidence by: Ability to recall events of the day, Remote intact, as evidenced by: Abilit to recall sig. life events, Remote intact , as evidenced by: Ability to recall historical events - Risk Risk: Suicidal, Diminished functioning - Strength & Assets Inventory Strength & Assets Inventory: Cooperative DSM 5 DX - DSM 5 DSM 5 Diagnosis: Major Depressive Disorder w/ Psychotic Features; r/o substance induced mood and psychotic disorders; Cocaine Use Disorder; Alcohol Use Disorder - Recommended/Plan of Treatment Treatment Recommendations and Plan of Treatment: Major Depressive Disorder w/ Psychotic Features; r/o substance induced mood and psychotic disorders; Cocaine Use Disorder; Alcohol Use Disorder -Admit to psychiatry unit -Individual and group therapy -Motivational interviewing and psychoeducation re: substance abuse -Start Celexa 20 mg PO Daily and Risperdal 0.5 mg PO HS -Obtain collateral history -Medicine consult appreciated -Disposition planning Projected ELOS: 5-8 days Discharge Plan and Discharge Criteria: Discharge when patient is psychiatrically stable - Smoking Cessation Smoking Cessation Initiated: No Reason for not providing: Not indicated
[2018-01-19] MEDS: Multivitamin With Minerals Tab PO SCH (12:54)
--- NOTE | 2018-01-20 09:01 | CP.PCM.PN ---
Subjective - Date & Time of Evaluation Date of Evaluation: 01/20/18 Time of Evaluation: 07:40 - Subjective Subjective: 42 year old male, with PMHX remarkable for DVT/PE, and extensive psych history admitted for evaluation and treatment of depression and suicidal ideation. Patient seen and examined this morning. Patient was in hallway, socializing and smiling with other patients, NAD, AAO. Patient admits hearing voices last night , denies current suicidal or homicidal ideation. Patient denies any dizziness, blurred vision, headache, chest pain/palpitations, SOB, abdominal pain, urinary symptoms, f/c/n/v/d or any weakness. Objective - Vital Signs/Intake and Output Vital Signs (last 24 hours): Temp Pulse Resp BP Pulse Ox 96.6 F L 77 18 140/88 98 01/19/18 17:37 01/19/18 22:00 01/19/18 22:00 01/19/18 22:00 01/18/18 22:00 - Medications Medications: Current Medications Acetaminophen (Tylenol 325mg Tab) 650 mg PO Q4 PRN PRN Reason: Pain, moderate (4-7) Last Admin: 01/18/18 12:38 Dose: 650 mg Al Hydrox/Mg Hydrox/Simethicone (Maalox Plus 30 Ml) 30 ml PO Q4 PRN PRN Reason: Dyspepsia Aspirin (Aspirin Chewable) 81 mg PO DAILY [facility] Last Admin: 01/19/18 09:05 Dose: 81 mg Citalopram Hydrobromide (Celexa) 20 mg PO DAILY [facility] Last Admin: 01/19/18 12:54 Dose: 20 mg Diphenhydramine HCl (Benadryl) 50 mg IM Q6 PRN PRN Reason: Extrapyramidal S/S Unable PO Diphenhydramine HCl (Benadryl) 50 mg PO Q6 PRN PRN Reason: Extrapyramidal Symptoms Last Admin: 01/19/18 14:17 Dose: 50 mg Diphenhydramine HCl (Benadryl) 50 mg PO HS PRN PRN Reason: Sleep Folic Acid (Folic Acid) 1 mg PO DAILY [facility] Last Admin: 01/19/18 12:54 Dose: 1 mg Haloperidol (Haldol) 5 mg PO Q4 PRN PRN Reason: Agitation Last Admin: 01/19/18 14:17 Dose: 5 mg Haloperidol Lactate (Haldol) 5 mg IM Q4 PRN PRN Reason: Agitation, Unable to Take PO Lorazepam (Ativan) 1 mg PO Q8 PRN PRN Reason: for severe agitation Lorazepam (Ativan) 2 mg IM Q8 PRN PRN Reason: Agitation Magnesium Hydroxide (Milk Of Magnesia) 30 ml PO HS PRN PRN Reason: Constipation Multivitamins/Minerals (Therapeutic-M Tab) 1 tab PO DAILY [facility] Last Admin: 01/19/18 12:54 Dose: 1 tab Risperidone (Risperdal Tab) 0.5 mg PO HS [facility] Last Admin: 01/19/18 21:08 Dose: 0.5 mg Thiamine HCl (Vitamin B1 Tab) 100 mg PO DAILY [facility] Last Admin: 01/19/18 12:54 Dose: 100 mg Trazodone HCl (Desyrel) 50 mg PO HS PRN PRN Reason: Insomnia - Labs Labs: 01/18/18 06:15 01/18/18 06:15 - Constitutional Appears: Well, No Acute Distress - Head Exam Head Exam: ATRAUMATIC, NORMAL INSPECTION - Eye Exam Eye Exam: Normal appearance Pupil Exam: NORMAL ACCOMODATION - ENT Exam ENT Exam: Mucous Membranes Moist - Neck Exam Neck Exam: Full ROM. absent: Lymphadenopathy, Meningismus, Tenderness - Respiratory Exam Respiratory Exam: Clear to Ausculation Bilateral, NORMAL BREATHING PATTERN. absent: Accessory Muscle Use, Chest Wall Tenderness, Decreased Breath Sounds, Rhonchi, Wheezes - Cardiovascular Exam Cardiovascular Exam: REGULAR RHYTHM, RRR, +S1, +S2. absent: Bradycardia, Tachycardia - GI/Abdominal Exam GI & Abdominal Exam: Soft, Normal Bowel Sounds. absent: Tenderness - Extremities Exam Extremities Exam: Full ROM, Normal Capillary Refill, Normal Inspection. absent : Joint Swelling, Pedal Edema, Tenderness Additional comments: b/l LE; chronic bony changes, sensory and motor intact, good pulses b/l - Back Exam Back Exam: NORMAL INSPECTION. absent: CVA tenderness (L), CVA tenderness (R) - Neurological Exam Neurological Exam: Alert, Awake, CN II-XII Intact, Oriented x3 - Psychiatric Exam Psychiatric exam: Normal Affect, Normal Mood - Skin Skin Exam: Dry, Intact, Normal Color, Warm Assessment and Plan - Assessment and Plan (Free Text) Assessment: A/P: 42 y/o male with PMHx of PE/DVT, extensive psych history admitted to [facility] for suicidal ideation. 1) Suicidal Ideation -currently denies -as per psych team 2) Depression -as per psych team 3) History of PE/DVT -asymptomatic -dc'ed eliquis on his own 8 months ago -ambulation 4) MTHFR Gene Mutation -c/w aspirin 81 qd 5) Hepatitis C -outpatient evaluation with Dr. Blakely pending 6) Diet -regular 7) Health Maintenance -Hemoglobin A1C: pending -Lipid Panel: TG 165, chol 173, LDL 111, HDL 30 -RPR: Negative
[2018-01-20] MEDS: Multivitamin With Minerals Tab PO SCH (09:43)
--- NOTE | 2018-01-20 11:30 | CARD ---
APPROVED REPORT EKG Measurement Heart [id number] <Conclusion> Sinus tachycardia Possible Left atrial enlargement Nonspecific T wave abnormality Abnormal ECG
[2018-01-20 14:57] VITALS: O2SAT 96
--- NOTE | 2018-01-20 17:04 | PCM.PYCHPN ---
Psychiatric Progress Note - Psychiatric Progress Note Patient seen today, length of contact: pt evaluated discussed with team and chart reviewed Patient Chief Complaint: I used the cocaine to medicate my depression Problems Identified/Issues Discussed: pt on evaluation , presenting with depressed mood and affect, reported low energy, feeling hopeless and helpless, pt reported experiencing non command auditory hallucinations putting him down and making him feel worthless, discussed with pt increasing risperidone, also changing the celexa to wellbutrin to help with the energy level, motivation and with the cravings, motivational therapy provided in reference to cocaine use discussed with pt the effect of cocaine on current mental status, discussed the need to join [facility] program on discharge pt denied any current active suicidal ideation on the unit , denied command hallucinations DSM 5 Symptoms Update: major depression recurrent severe with psychotic features cocaine use disorder alcohol use disorder Medication Change: Yes (start wellbutrin) Medical Record Reviewed: Yes Mental Status Examination - Cognitive Function Orientation: Person, Place, Situation, Time Attention: WNL Concentration: WNL Association: WNL Fund of Knowledge: WN Decription of patient's judgement and insights: fair insight , poor judgment - Mood Mood: Depressed, Anxious - Affect Affect: Constricted, Depressed - Speech Speech: Soft - Formal Thought Process Formal Thought Process: Hallucinations (Intermittent AH, last heard yesterday) Psychotic Thoughts and Behaviors: pt reported non command AH putting him down - Suicidal Ideation Suicidal Ideation: No - Homicidal Ideation Homicidal Ideation: No Goal/Treatment Plan - Goal/Treatment Plan Need for Continued Stay: Remain at risks for inpatient hospitalization, Severe depression anxiety, Discharge may exacerbated symptoms Progress Toward Problem(s) and Goals/Treatment Plan: wellbutrin 75mg daily increase gradually, d/c celexa risperidone 0.5mg bid CBT , motivational and group therapy Estimated Date of D/C: 01/24/18
[2018-01-20] MEDS: Risperidone M tab 0.5MG PO SCH (17:27)
[2018-01-21] MEDS: Risperidone M tab 0.5MG PO SCH (08:46)
[2018-01-21] MEDS: Multivitamin With Minerals Tab PO SCH (08:46)
--- NOTE | 2018-01-21 17:32 | PCM.PYCHPN ---
Psychiatric Progress Note - Psychiatric Progress Note Patient seen today, length of contact: pt evaluated discussed with team and chart reviewed Patient Chief Complaint: I am starting to feel better with the antidepressant Problems Identified/Issues Discussed: pt on evaluation , reported feling less depressed with wellbutrin, no reported side effects, discussed increasing dose , pt continues to have non command auditory hallucinations, will increase risperidone gradually, pt in agreement with attending [facility] program on discharge attending groups and compliant with treatment pt denied any current active suicidal ideation on the unit , denied command hallucinations DSM 5 Symptoms Update: major depression cocaine use disorder alcohol use disorder Medication Change: Yes (increase wellbutrin) Medical Record Reviewed: Yes Mental Status Examination - Cognitive Function Orientation: Person, Place, Situation, Time Attention: WNL Concentration: WNL Association: WNL Fund of Knowledge: WN Decription of patient's judgement and insights: fair insight , poor judgment - Mood Mood: Depressed, Anxious - Affect Affect: Constricted, Depressed - Speech Speech: Soft - Formal Thought Process Formal Thought Process: Hallucinations (Intermittent AH, last heard yesterday) Psychotic Thoughts and Behaviors: pt reported non command AH putting him down - Suicidal Ideation Suicidal Ideation: No - Homicidal Ideation Homicidal Ideation: No Goal/Treatment Plan - Goal/Treatment Plan Need for Continued Stay: Remain at risks for inpatient hospitalization, Severe depression anxiety, Discharge may exacerbated symptoms Progress Toward Problem(s) and Goals/Treatment Plan: increase wellbutrin 150mg sr daily risperidone 0.5mg daily and 1mg qhs CBT , motivational and group therapy Estimated Date of D/C: 01/24/18
--- NOTE | 2018-01-21 18:46 | CP.PCM.PN ---
Subjective - Date & Time of Evaluation Date of Evaluation: 01/21/18 Time of Evaluation: 18:00 - Subjective Subjective: S: Patient seen and evaluated today after patient was c/o mild 2 sec dizziness/ spinning with laying down on bed. This has been going on for few weeks, denies any presyncopal or syncopal episodes. Denies any nausea or vomiting, ear ringing or any f/c/v. No palpitations, no blurred vision. O: VS: BP lying down 158/89, HR 87 BP standing 140/86, HR 102 BP Sitting down 160/95, HR 93 PE: Neuro exam: crepe box tender exam normal, normal gaits, good motor and sensory b/l UEs and LEs A/P: Patient was advice supportive management, lifestyle modifications discussed with patient. Arising slowly, from supine to seated to standing. maintaining hydration and avoid over heating discussed with patient. Avoid alcohol and illicit drug use. will follow up while inpatient . Objective - Vital Signs/Intake and Output Vital Signs (last 24 hours): Temp Pulse Resp BP Pulse Ox 97.0 F L 88 18 179/113 H 96 01/21/18 16:52 01/21/18 16:52 01/21/18 16:52 01/21/18 16:52 01/20/18 14:57 - Medications Medications: Current Medications Acetaminophen (Tylenol 325mg Tab) 650 mg PO Q4 PRN PRN Reason: Pain, moderate (4-7) Last Admin: 01/18/18 12:38 Dose: 650 mg Al Hydrox/Mg Hydrox/Simethicone (Maalox Plus 30 Ml) 30 ml PO Q4 PRN PRN Reason: Dyspepsia Aspirin (Aspirin Chewable) 81 mg PO DAILY [facility] Last Admin: 01/21/18 08:46 Dose: 81 mg Bupropion HCl (Wellbutrin Sr 150 Mg) 150 mg PO DAILY [facility] Diphenhydramine HCl (Benadryl) 50 mg IM Q6 PRN PRN Reason: Extrapyramidal S/S Unable PO Diphenhydramine HCl (Benadryl) 50 mg PO Q6 PRN PRN Reason: Extrapyramidal Symptoms Last Admin: 01/20/18 09:14 Dose: 50 mg Diphenhydramine HCl (Benadryl) 50 mg PO HS PRN PRN Reason: Sleep Folic Acid (Folic Acid) 1 mg PO DAILY [facility] Last Admin: 01/21/18 08:46 Dose: 1 mg Haloperidol (Haldol) 5 mg PO Q4 PRN PRN Reason: Agitation Last Admin: 01/20/18 09:14 Dose: 5 mg Haloperidol Lactate (Haldol) 5 mg IM Q4 PRN PRN Reason: Agitation, Unable to Take PO Hydrochlorothiazide (Microzide) 12.5 mg PO DAILY [facility] Last Admin: 01/21/18 15:57 Dose: 12.5 mg Hydroxyzine Pamoate (Vistaril) 25 mg PO TID PRN PRN Reason: Anxiety Magnesium Hydroxide (Milk Of Magnesia) 30 ml PO HS PRN PRN Reason: Constipation Multivitamins/Minerals (Therapeutic-M Tab) 1 tab PO DAILY [facility] Last Admin: 01/21/18 08:46 Dose: 1 tab Risperidone (Risperdal Tab) 0.5 mg PO HS [facility] Last Admin: 01/20/18 21:19 Dose: 0.5 mg Risperidone (Risperdal M-Tab) 1 mg PO HS [facility] Thiamine HCl (Vitamin B1 Tab) 100 mg PO DAILY [facility] Last Admin: 01/21/18 08:46 Dose: 100 mg Trazodone HCl (Desyrel) 50 mg PO HS PRN PRN Reason: Insomnia - Labs Labs: 01/18/18 06:15 01/18/18 06:15
[2018-01-21] MEDS ORDERED: Risperidone M tab 1 MG PO SCH (22:00)
[2018-01-22] MEDS: Multivitamin With Minerals Tab PO SCH (08:46)
[2018-01-22] MEDS: buPROPion SR 150 MG TABLET PO SCH (08:46)
--- NOTE | 2018-01-22 13:41 | PCM.PYCHPN ---
Psychiatric Progress Note - Psychiatric Progress Note Patient seen today, length of contact: pt evaluated discussed with team and chart reviewed Patient Chief Complaint: I feel better with the new medicine Problems Identified/Issues Discussed: pt evaluated with treatment team,reported feeling less depressed with wellbutrin , continues to have non command auditory hallucinations, rated them 7/10, discussed gradual increase in the dose of risperidone, motivational therapy provided in reference to cocaine use and its effect on current mental status pt in agreement to join [facility] outpatient on discharge pt denied any current active suicidal ideation on the unit , DSM 5 Symptoms Update: major depression cocaine use disorder Medication Change: Yes (increase risperidone) Medical Record Reviewed: Yes Mental Status Examination - Cognitive Function Orientation: Person, Place, Situation, Time Attention: WNL Concentration: WNL Association: WNL Fund of Knowledge: WN Decription of patient's judgement and insights: fair insight , poor judgment - Mood Mood: Depressed, Anxious - Affect Affect: Constricted, Depressed - Speech Speech: Soft - Formal Thought Process Formal Thought Process: Hallucinations (Intermittent AH, last heard yesterday) Psychotic Thoughts and Behaviors: pt reported non command AH putting him down - Suicidal Ideation Suicidal Ideation: No - Homicidal Ideation Homicidal Ideation: No Goal/Treatment Plan - Goal/Treatment Plan Need for Continued Stay: Remain at risks for inpatient hospitalization, Severe depression anxiety, Discharge may exacerbated symptoms Progress Toward Problem(s) and Goals/Treatment Plan: wellbutrin 150mg sr daily risperidone 2mg qhs CBT , motivational and group therapy Estimated Date of D/C: 01/24/18
[2018-01-23] MEDS: Multivitamin With Minerals Tab PO SCH (08:37)
[2018-01-23] MEDS: buPROPion SR 150 MG TABLET PO SCH (09:00)
--- NOTE | 2018-01-23 14:19 | PCM.PYCHPN ---
Psychiatric Progress Note - Psychiatric Progress Note Patient seen today, length of contact: pt evaluated discussed with team and chart reviewed Patient Chief Complaint: the voices are much less Problems Identified/Issues Discussed: pt evaluated m,reported feeling less depressed with wellbutrin, also reported clearing off of the auditory hallucinations, rated them 2/10, motivational therapy provided in reference to cocaine use and its effect on current mental status pt in agreement to join [facility] outpatient on discharge pt denied any current active suicidal ideation on the unit , DSM 5 Symptoms Update: major depression cocaine abuse Medication Change: No Medical Record Reviewed: Yes Mental Status Examination - Cognitive Function Orientation: Person, Place, Situation, Time Attention: WNL Concentration: WNL Association: WN Fund of Knowledge: [facility] Decription of patient's judgement and insights: fair insight , poor judgment - Mood Mood: Depressed, Anxious - Affect Affect: Constricted, Depressed - Speech Speech: Appropriate - Formal Thought Process Formal Thought Process: Hallucinations (Intermittent AH, last heard yesterday) Psychotic Thoughts and Behaviors: pt reported non command AH putting him down - Suicidal Ideation Suicidal Ideation: No - Homicidal Ideation Homicidal Ideation: No Goal/Treatment Plan - Goal/Treatment Plan Need for Continued Stay: Remain at risks for inpatient hospitalization, Severe depression anxiety, Discharge may exacerbated symptoms Progress Toward Problem(s) and Goals/Treatment Plan: wellbutrin 150mg sr daily risperidone 2mg qhs CBT , motivational and group therapy Estimated Date of D/C: 01/24/18
--- NOTE | 2018-01-24 08:06 | CP.PCM.PN ---
Subjective - Date & Time of Evaluation Date of Evaluation: 01/24/18 Time of Evaluation: 07:30 - Subjective Subjective: Patient seen and examined this morning. NAD, no acute event overnight. Patient denies any current dizziness, palpitations, SOB, headache , blurred vision, chest pain, SOB, urinary symptoms, abdominal pain, f/c/n/v/d or weakness. Patient reports good appetite, good sleep and states he is doing much better since admission. - C/w Norvasc 10mg daily and Aspirin 81 mg daily after discharge, RX in chart, patient is aware. Objective - Vital Signs/Intake and Output Vital Signs (last 24 hours): Temp Pulse Resp BP Pulse Ox 97.1 F L 87 20 163/89 H 96 01/23/18 18:28 01/23/18 21:23 01/23/18 21:23 01/23/18 21:23 01/20/18 14:57 - Medications Medications: Current Medications Acetaminophen (Tylenol 325mg Tab) 650 mg PO Q4 PRN PRN Reason: Pain, moderate (4-7) Last Admin: 01/18/18 12:38 Dose: 650 mg Al Hydrox/Mg Hydrox/Simethicone (Maalox Plus 30 Ml) 30 ml PO Q4 PRN PRN Reason: Dyspepsia Amlodipine Besylate (Norvasc) 10 mg PO DAILY [facility] Last Admin: 01/23/18 18:59 Dose: 10 mg Aspirin (Aspirin Chewable) 81 mg PO DAILY [facility] Last Admin: 01/23/18 08:38 Dose: 81 mg Bupropion HCl (Wellbutrin Sr 150 Mg) 150 mg PO DAILY [facility] Last Admin: 01/23/18 09:00 Dose: 150 mg Diphenhydramine HCl (Benadryl) 50 mg IM Q6 PRN PRN Reason: Extrapyramidal S/S Unable PO Diphenhydramine HCl (Benadryl) 50 mg PO Q6 PRN PRN Reason: Extrapyramidal Symptoms Last Admin: 01/20/18 09:14 Dose: 50 mg Diphenhydramine HCl (Benadryl) 50 mg PO HS PRN PRN Reason: Sleep Folic Acid (Folic Acid) 1 mg PO DAILY [facility] Last Admin: 01/23/18 08:38 Dose: 1 mg Haloperidol (Haldol) 5 mg PO Q4 PRN PRN Reason: Agitation Last Admin: 01/20/18 09:14 Dose: 5 mg Haloperidol Lactate (Haldol) 5 mg IM Q4 PRN PRN Reason: Agitation, Unable to Take PO Hydroxyzine Pamoate (Vistaril) 25 mg PO TID PRN PRN Reason: Anxiety Magnesium Hydroxide (Milk Of Magnesia) 30 ml PO HS PRN PRN Reason: Constipation Multivitamins/Minerals (Therapeutic-M Tab) 1 tab PO DAILY [facility] Last Admin: 01/23/18 08:37 Dose: 1 tab Risperidone (Risperdal Tab) 2 mg PO HS [facility] Last Admin: 01/23/18 21:10 Dose: 2 mg Thiamine HCl (Vitamin B1 Tab) 100 mg PO DAILY [facility] Last Admin: 01/23/18 08:38 Dose: 100 mg Trazodone HCl (Desyrel) 50 mg PO HS PRN PRN Reason: Insomnia - Labs Labs: 01/18/18 06:15 01/18/18 06:15 - Constitutional Appears: No Acute Distress - Head Exam Head Exam: NORMAL INSPECTION - Eye Exam Eye Exam: Normal appearance - ENT Exam ENT Exam: Mucous Membranes Moist - Respiratory Exam Respiratory Exam: Clear to Ausculation Bilateral, NORMAL BREATHING PATTERN - Cardiovascular Exam Cardiovascular Exam: REGULAR RHYTHM - GI/Abdominal Exam GI & Abdominal Exam: Soft, Normal Bowel Sounds - Rectal Exam Rectal Exam: NORMAL INSPECTION - Extremities Exam Extremities Exam: Normal Capillary Refill, Normal Inspection - Back Exam Back Exam: NORMAL INSPECTION. absent: CVA tenderness (L), CVA tenderness (R) - Neurological Exam Neurological Exam: Alert, Awake, CN II-XII Intact, Normal Gait, Oriented x3 - Psychiatric Exam Psychiatric exam: Normal Affect - Skin Skin Exam: Dry, Intact, Normal Color, Warm Assessment and Plan - Assessment and Plan (Free Text) Assessment: A/P: 42 y/o male with PMHx of PE/DVT, extensive psych history admitted to [facility] for suicidal ideation. 1) Suicidal Ideation -currently denies -as per psych team 2) Depression -as per psych team 3) History of PE/DVT -asymptomatic -dc'ed eliquis on his own 8 months ago -ambulation 4) MTHFR Gene Mutation -c/w aspirin 81 qd 5) Hepatitis C -outpatient evaluation with Dr. Blakely pending 6) Diet -regular 7) Health Maintenance -Hemoglobin A1C: 5.6 -Lipid Panel: TG 165, chol 173, LDL 111, HDL 30 -RPR: Negative 8) HTN - Norvasc 10mg PO daily
[2018-01-24 08:43] VITALS: RESP 18
[2018-01-24] MEDS: buPROPion SR 150 MG TABLET PO SCH (09:14)
[2018-01-24] MEDS: Multivitamin With Minerals Tab PO SCH (09:14)
--- NOTE | 2018-01-24 13:02 | PCM.PYCHPN ---
Psychiatric Progress Note - Psychiatric Progress Note Patient seen today, length of contact: pt evaluated discussed with team and chart reviewed Patient Chief Complaint: I am feeling better and ready to start the program outside Problems Identified/Issues Discussed: pt evaluated , presenting with brighter affect, reported mood calm and less depressed, no reported side effects of medications, denied any current perceptual disturbances pt denied any current active suicidal or homicidal ideation DSM 5 Symptoms Update: major depression cocaine abuse Medication Change: No Medical Record Reviewed: Yes Mental Status Examination - Cognitive Function Orientation: Person, Place, Situation, Time Attention: WNL Concentration: WNL Association: WNL Fund of Knowledge: [facility] Decription of patient's judgement and insights: fair insight , poor judgment - Mood Mood: Depressed, Anxious - Affect Affect: Constricted, Depressed - Speech Speech: Appropriate - Formal Thought Process Formal Thought Process: Hallucinations (Intermittent AH, last heard yesterday) Psychotic Thoughts and Behaviors: pt reported non command AH putting him down - Suicidal Ideation Suicidal Ideation: No - Homicidal Ideation Homicidal Ideation: No Goal/Treatment Plan - Goal/Treatment Plan Need for Continued Stay: Remain at risks for inpatient hospitalization, Severe depression anxiety, Discharge may exacerbated symptoms Progress Toward Problem(s) and Goals/Treatment Plan: wellbutrin 150mg sr daily risperidone 2mg qhs CBT , motivational and group therapy Estimated Date of D/C: 01/24/18
[2018-01-25] MEDS: Multivitamin With Minerals Tab PO SCH (08:36)
[2018-01-25 08:37] VITALS: BP 140/82
[2018-01-25] MEDS: buPROPion SR 150 MG TABLET PO SCH (08:37)
[2018-01-25 09:18] VITALS: PULSE 81; TEMP 97
--- NOTE | 2018-01-25 12:39 | PCM.PYCHDC ---
Mental Status Examination - Mental Status Examination Orientation: Person, Place, Situation, Time Memory: Intact Mood: Neutral Affect: Broad Speech: Appropriate Attention: WNL Concentration: WNL Association: WNL Fund of Knowledge: WNL Formal Thought Process: No Impairment Description of patient's judgement and insight: reports realizes and accepts that needs to follow up with [facility] realizes needs to avoid substance use, believes current current medications are working to control mood and is no longer thinking that people are looking at him and judging him. Psychotic Thoughts and Behaviors: denies Suicidal Ideation: No Current Homicidal Ideation?: No Discharge Summary - Discharge Note Reason for Hospitalization: pt presented to suicidal ideation and paranoia in context of polysubstance use. was admitted on voluntary basis, participated in milieu based activities, wellbutrin was initiated to improve vegetative symptoms celexa was discontinued without reported complaints of serotonin withdrawal. risperdal was uptitrated without complaints of eps and resolve of paranoia. verbalizes desire to continue to follow up with [facility] upon discharge. Laboratory Data: per chart Consultations:: List each consultation separately and include: 1. Reason for request. 2. Findings. 3. Follow-up Consultations: pt seen by hospitalist Summary of Hospital Course include:: 1. Description of specific treatment plan utilized for patients during their course of treatmen. 2. Summarize the time- course for resolution of acute symptoms and/or regressed behaviors. 3. Describe issues identified and worked on during hospitalization. 4. Describe medication utilized. 5. Describe medical problems identified and treated. 6. Reassessment of suicide risk Summary of Hospital Course: admitted via er, voluntary admission, milieu therapy, adjustment of medications , evaluated by hospitalist, resolve of suicidal ideations, resolve of paranoia, no complaints of eps, denies complaints of w/d. verbally agreeable to continue treatment upon discharge. - Final Diagnosis (DSM 5) Condition upon Discharge: STABLE Disposition: HOME/ ROUTINE Prescriptions/Medication Reconciliation: amLODIPine [Norvasc] 10 mg PO DAILY 30 Days #30 tab Aspirin [Aspirin Chewable] 81 mg PO DAILY 30 Days #30 chew buPROPion SR [Wellbutrin SR 150 MG] 150 mg PO DAILY 30 Days #30 tab risperiDONE [RisperDAL Tab] 2 mg PO HS 30 Days #30 tab traZODone [Desyrel] 50 mg PO HS PRN 30 Days #30 tab PRN Reason: Insomnia - Smoking Cessation Smoking Cessation Medication prescribed: No - Antipsychotic Medications Pt discharged on 2 or more routine antipsychotic medications: No
== END 2018-01-25 13:15 | disposition home or self-care (01) | DRG 430 ==
LOC: H.ER 05:35 → H.ERHOLD 10:30 → H.PSYCH 12:23
PROVIDERS: ADMIT Psychiatry & Neurology Psychiatry; ATTEND Psychiatry & Neurology Psychiatry
PROC: GZHZZZZ Group Psychotherapy (ICD-10-PCS; principal; 2018-01-18)
PROC: GZ58ZZZ Individual Psychotherapy, Cognitive-Behavioral (ICD-10-PCS; 2018-01-18)
PROC: HZ52ZZZ Individual Psychotherapy for Substance Abuse Treatment, Cognitive-Behavioral (ICD-10-PCS; 2018-01-18)
DX: F33.3 Major depressive disorder, recurrent, severe with psychotic symptoms (principal); F14.14 Cocaine abuse with cocaine-induced mood disorder; B19.20 Unspecified viral hepatitis C without hepatic coma; F10.129 Alcohol abuse with intoxication, unspecified; Y90.2 Blood alcohol level of 40-59 mg/100 ml; F41.9 Anxiety disorder, unspecified; I10 Essential (primary) hypertension; R45.851 Suicidal ideations; F17.200 Nicotine dependence, unspecified, uncomplicated; Z79.82 Long term (current) use of aspirin; Z91.19 Patient's noncompliance with other medical treatment and regimen; Z86.718 Personal history of other venous thrombosis and embolism; Z86.711 Personal history of pulmonary embolism

== ENCOUNTER 2018-06-27 08:07 | Inpatient (IN) | payer MEDICAID, SELFPAY ==
[2018-06-27 08:15] VITALS: BMI 33.4
[2018-06-27] MEDS ORDERED: Sodium Chloride 0.9% 1,000 ML IV STA (08:36)
--- NOTE | 2018-06-27 08:51 | ED PDOC ---
HPI: Psych/Substance Abuse Time Seen by Provider: 06/27/18 08:27 Chief Complaint (Nursing): Psychiatric Evaluation Chief Complaint (Provider): Psychiatric Evaluation History Per: Patient History/Exam Limitations: no limitations Onset/Duration Of Symptoms: Mins (30 minutes prior to arrival) Current Symptoms Are (Timing): Still Present Modifying Factor(s): Alcohol, Cocaine Associated Symptoms: Depression Additional Complaint(s): 43 year old male with a past medical history of depression, DVT, pulmonary embolism, hypertension and CVA presents to the ED for a psychiatric evaluation. Patient admits to ingestion of alcohol, cocaine and unknown quantity of unknown pills 30 minutes prior to arrival as suicidal attempt. He states he feels depressed. Past Medical History Reviewed: Historical Data, Nursing Documentation, Vital Signs Vital Signs: Last Vital Signs Temp 97.6 F 06/27/18 08:14 Pulse 99 H 06/27/18 08:14 Resp 20 06/27/18 08:14 BP 137/90 06/27/18 08:14 Pulse Ox 98 06/27/18 08:14 - Medical History PMH: Anxiety, Bipolar Disorder, CVA, Depression, Deep Vein Thrombosis, Pulmonary Embolism (no longer on eliquis), Schizophrenia, TIA Denies: Diabetes, Hepatitis, HIV, HTN (Denies on admission), Kidney Stones, Chronic Kidney Disease, Seizures, Sexually Transmitted Disease - Family History Family History: States: Unknown Family Hx - Social History Current smoker - smoking cessation education provided: Yes Alcohol: Social Drugs: Cocaine - Immunization History Hx Tetanus Toxoid Vaccination: Yes Hx Influenza Vaccination: No Hx Pneumococcal Vaccination: No - Home Medications Home Medications: Ambulatory Orders Medication Instructions Recorded Aspirin [Aspirin Chewable] 81 mg PO DAILY 30 Days #30 chew 01/24/18 amLODIPine [Norvasc] 10 mg PO DAILY 30 Days #30 tab 01/24/18 buPROPion SR [Wellbutrin SR 150 MG] 150 mg PO DAILY 30 Days #30 tab 01/24/18 risperiDONE [RisperDAL Tab] 2 mg PO HS 30 Days #30 tab 01/24/18 traZODone [Desyrel] 50 mg PO HS PRN 30 Days #30 tab 01/24/18 - Allergies Allergies/Adverse Reactions: Allergies Allergy/AdvReac Type Severity Reaction Status Date / Time No Known Allergies Allergy Verified 06/27/18 08:22 Review of Systems ROS Statement: Except As Marked, All Systems Reviewed And Found Negative Constitutional: Negative for: Fever Cardiovascular: Negative for: Chest Pain Gastrointestinal: Negative for: Abdominal Pain Psych: Positive for: Depression, Suicidal ideation Physical Exam - Reviewed Nursing Documentation Reviewed: Yes Vital Signs Reviewed: Yes - Physical Exam Appears: Negative for: Well Head Exam: Positive for: ATRAUMATIC, NORMAL INSPECTION, NORMOCEPHALIC Skin: Positive for: Normal Color, Warm, Dry. Negative for: Rash Eye Exam: Positive for: EOMI, Normal appearance, PERRL ENT: Positive for: Normal ENT Inspection Neck: Positive for: Normal, Painless ROM Cardiovascular/Chest: Positive for: Regular Rate, Rhythm. Negative for: Murmur Respiratory: Positive for: Normal Breath Sounds. Negative for: Decreased Breath Sounds, Wheezing, Respiratory Distress Gastrointestinal/Abdominal: Positive for: Normal Exam, Soft. Negative for: Tenderness Back: Positive for: Normal Inspection Extremity: Positive for: Normal ROM. Negative for: Tenderness, Pedal Edema, Deformity Neurologic/Psych: Positive for: Alert, Oriented (x3). Negative for: Motor/Sensory Deficits - Laboratory Results Result Diagrams: 06/27/18 08:52 06/27/18 08:52 - ECG O2 Sat by Pulse Oximetry: 98 (RA) Pulse Ox Interpretation: Normal Medical Decision Making Medical Decision Making: Time: 834 Initial Plan: EKG Acetaminophen Alcohol serum CMP Drug screen Salicylate Troponin I CBC w/ Differential Prothrombin Time [COAG] Chest Portable Normal Saline 1000 mls/hr 1:1 Observation Urinalysis Reevaluation Medically stable for psychiatric admission Scribe Attestation: Documented by Maryann Mejia, acting as a scribe for Arturo Petit MD. Provider Scribe Attestation: All medical record entries made by the Scribe were at my direction and personally dictated by me. I have reviewed the chart and agree that the record accurately reflects my personal performance of the history, physical exam, medical decision making, and the department course for this patient. I have also personally directed, reviewed, and agree with the discharge instructions and disposition. Disposition - Clinical Impression Clinical Impression: Major depression - Patient ED Disposition Is Patient to be Admitted: Yes - Disposition Disposition Time: 13:50 Condition: FAIR Forms: [facility] (Chinese) - Pt Status Changed To: Hospital Disposition Of: Inpatient - Admit Certification Admit to Inpatient:: After my assessment, the patient will require hospitalization for at least two midnights. This is because of the severity of symptoms shown, intensity of services needed, and/or the medical risk in this patient being treated as an outpatient. - POA Present On Arrival: None
[2018-06-27 09:19] LABS: BASO % 0.4 % (0.0-2.0); EOS % 0.2 % (0.0-4.0); HEMOGLOBIN 17.2 g/dL (12.0-18.0); LYMPH # 2.6 K/uL (1.0-4.3); LYMPH % 29.4 % (20.0-40.0); MEAN CELL VOLUME 93.5 fl (80.0-94.0); MEAN CORPUSCULAR HEMOGLOBIN 32.5 pg (27.0-31.0); MEAN CORPUSCULAR HGB CONC 34.8 g/dL (33.0-37.0); MEAN PLATELET VOLUME 7.9 fl (7.2-11.7); MONO # 0.6 K/uL (0.0-0.8); MONO % 6.4 % (0.0-10.0); NEUT # 5.7 K/uL (1.8-7.0); NEUT % 63.6 % (50.0-75.0); NRBC % 0.2 % (0.0-0.0); RBC 5.29 Mil/uL (4.40-5.90); RED CELL DISTRIBUTION WIDTH 12.9 % (11.5-14.5)
[2018-06-27 09:27] LABS: INR 1.1; PROTHROMBIN TIME 12.3 Seconds (9.8-13.1)
[2018-06-27 09:29] LABS: ACETAMINOPHEN < 10.0 ug/ml (10.0-30.0); SALICYLATE < 1.0 mg/dl
[2018-06-27 09:37] LABS: ALB/GLOB RATIO 1.1 (1.0-2.1); ALBUMIN 4.9 g/dL (3.5-5.0); ALT/SGPT 120 U/L (21-72); AST/SGOT 67 U/L (17-59); BLOOD UREA NITROGEN 9 mg/dl (9-20); CALCIUM 9.7 mg/dL (8.4-10.2); GFR NON-AFRICAN AMERICAN > 60
--- NOTE | 2018-06-27 10:02 | RAD ---
Date of service: 06/27/2018 HISTORY: cough COMPARISON: 12/22/2017 FINDINGS: LUNGS: Vague right increased density of right lung relative to left, possibly artifactual. No focal opacity. PLEURA: No significant pleural effusion identified, no pneumothorax apparent. CARDIOVASCULAR: No aortic atherosclerotic calcification present. Normal cardiac size. No pulmonary vascular congestion. OSSEOUS STRUCTURES: No significant abnormalities. VISUALIZED UPPER ABDOMEN: Normal. OTHER FINDINGS: None. IMPRESSION: No definite infiltrate. Increased diffuse density of right lung relative to left may be artifactual. Follow-up advised.
[2018-06-27 10:15] LABS: URINE BILIRUBIN NEGATIVE (NEGATIVE); URINE BLOOD SMALL (NEGATIVE); URINE CLARITY SLIGHTY-CLOUDY (Clear); URINE COLOR YELLOW (YELLOW); URINE GLUCOSE (UA) NEG (Normal); URINE LEUKOCYTE ESTERASE NEG Leu/uL (Negative); URINE PROTEIN 30 mg/dL (NEGATIVE); URINE UROBILINOGEN 0.2-1.0 mg/dL (0.2-1.0)
[2018-06-27 10:28] LABS: BARBITURATES, UR NEGATIVE (NEGATIVE); BENZODIAZEPINES, UR NEGATIVE (NEGATIVE); OPIATES, UR NEGATIVE (NEGATIVE); PHENCYCLIDINE, UR NEGATIVE (NEGATIVE)
[2018-06-27] MEDS ORDERED: Multivitamin (MVI) 10 ML, Thiamine 100 MG, Folic Acid 1 MG in Dextrose 5%/0.45% NS 1,00... IV ONE ×2 (10:31→10:45)
[2018-06-27 13:28] VITALS: O2SAT 98
[2018-06-27] MEDS ORDERED: DiphenhydrAMINE 50 mg/ml Inj IM PRN (16:08)
[2018-06-27] MEDS ORDERED: Magnesium Hydroxide Susp 30 ml UD PO PRN (16:08)
--- NOTE | 2018-06-27 17:03 | PCM.BM ---
<Maxx Herman - Last Filed: 06/27/18 17:01> Treatment Plan Problems - Problems identified on initial assessmt Hopelessness/Helplessness Date Initiated: 06/27/18 Time Initiated: 17:00 Assessment reference: NA Medication nonadherence Date Initiated: 06/27/18 Time Initiated: 17:00 Assessment reference: NA Denial Date Initiated: 06/27/18 Time Initiated: 17:00 Assessment reference: NA Knowledge Deficit: Alcohol Use Date Initiated: 06/27/18 Time Initiated: 17:00 Assessment reference: NA Anxiety Date Initiated: 06/27/18 Time Initiated: 17:00 Assessment reference: NA Self Harm Date Initiated: 06/27/18 Time Initiated: 17:00 Assessment reference: NA Treatment assets and liabiliti Patient Assests: cooperative, educated, insightful, ADL independent, physically healthy, good support system Patient Liabilities: relationship conflicts, substance abuse - Milieu Protocol Maintain good personal hygiene: every shift Encourage regular showers, every shift Remind patient to perform daily oral care, every shift Assist patient to perform ADL's Maintain personal safety: every shift Educate patient to report safety concerns to staff, every shift Monitor environment for contraband/sharps Medication safety: Monitor for expected outcome, potential side effects: every shift, Assess barriers to learning: every shift, Assess readiness for medication education: every shift <Nash Allan - Last Filed: 07/03/18 12:46> Family Contact Family involvement: Family/SO is involved Family contact: Patient declines to allow family contact at present Family contact name: Marzena - Spouse - Goals for Treatment Patient goals for treatment: Pt would like to be referred to an inpatient rehab. Discharge/Continuing Care - Education Needs Education Needs: Patient Medication, Patient Diagnosis/Disease Process, Patient Coping Skills, Patient Community resources, Patient Aftercare Safety Plan - Discharge Discharge Criteria: Tolerates medication w/o severe side effects, Free of Suicidal thoughts, Free of agitation, Normal sleep pattern, Reduction of target symptoms Discharge to:: Home, With Family - Treatment Team Participation Patient/Family/SO Statement: 07/03/18 12:46 Pt seen in treatment team on 07/02. Pt expressed hope and optimism of being discharged on Saturday and going to [facility]. Wellbutrin dosage and times of distribution. Pt reported he had difficulty sleeping because he got his Wellbutrin too late in the day. This was Clarified and should be given at 0900 and 1300. Pt denied thought of SI/HI and AVT hallucinations. Discussed with Family/SO: No Was Patient/Family/SO present at Treatment Team Meeting: Yes <Byron Szymanski - Last Filed: 07/04/18 09:52> - Diagnosis (1) Cocaine abuse Status: Acute Interventions: motivational therapy 07/04/18 09:51
--- NOTE | 2018-06-27 18:30 | CARD ---
APPROVED REPORT Date of service: 06/27/2018 EKG Measurement Heart [id number] <Conclusion> Normal sinus rhythm Normal ECG
--- NOTE | 2018-06-27 19:12 | CARD ---
APPROVED REPORT Date of service: 06/27/2018 EKG Measurement Heart [id number] <Conclusion> Normal sinus rhythm Normal ECG
[2018-06-28 08:51] LABS: T4 7.25 ug/dl (5.5-11.0)
[2018-06-28] MEDS ORDERED: Venlafaxine 37.5 mg ER Cap PO SCH (10:30)
--- NOTE | 2018-06-28 10:30 | PCM.PSYCH ---
Initial Psychiatric Evaluation - Initial Psychiatric Evaluation Type of Admission: Voluntary Legal Status: Capacity Chief Complaint (in patient's own words): I wanted to kill myself Patient's Reaction to Hospitalization: HPI: 43 yo male, presents w/ worsening depression, anxiety and suicidal ideation w/ plan to overdose on cocaine and "pain pills" (bought on the street) in the context non-compliance with psychiatric treatment or medications and cocaine and alcohol abuse. Patient reports that prior to admission he became intoxicated on one case of beer and smoked crack cocaine. He continues to have suicidal ideation. He also reports CAH to kill himself which he hears at night. +Sleep/appetite disturbances +Feelings of hopelessness +Anhedonia +Feeling of isolation +paranoia that people are out to get him PPHx: H/o 3 previous psychiatric admissions; He was treated w/ Wellbutrin, Celexa, Risperdal, Trazodone and Ativan in the past. He does not want to restart Wellbutrin because he does not feel it was effective. He is not currently compliant with outpatient treatment or medications. PMHx: DVT/PE 2017, MTHFR mutation, Hepatitis C, HTN PSsurgHx: Denies SocialHx: Drank 1 case of beer prior to admission, but reports that he does not drink daily and last drank 2 weeks before that. +Intermittent crack/cocaine use. Denies cig use. Recently left his 's home to live with his mother. 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 ALL: NKDA Current Medications: Active Medications Generic Name Dose Route Start Last Admin Trade Name Richieq PRN Reason Stop Dose Admin Acetaminophen 650 mg 06/27/18 16:08 Tylenol 325mg Tab PO Q4 PRN Pain, moderate (4-7) Al Hydrox/Mg Hydrox/Simethicone 30 ml 06/27/18 16:08 Maalox Plus 30 Ml PO Q4 PRN Dyspepsia Diphenhydramine HCl 50 mg 06/27/18 16:08 Benadryl PO Q6 PRN Extrapyramidal Symptoms Diphenhydramine HCl 50 mg 06/27/18 16:08 Benadryl IM Q6 PRN Extrapyramidal S/S Unable PO Diphenhydramine HCl 50 mg 06/27/18 21:22 06/27/18 21:32 Benadryl PO 50 mg HS PRN Administration Sleep Folic Acid 1 mg 06/28/18 10:30 Folic Acid PO DAILY [facility] Haloperidol 5 mg 06/27/18 16:08 Haldol PO Q4 PRN Agitation Haloperidol Lactate 5 mg 06/27/18 16:08 Haldol IM Q4 PRN Agitation, Unable to Take PO Lorazepam 1 mg 06/27/18 16:08 Ativan IM Q4 PRN Anxiety/Agitation,Unable PO Lorazepam 1 mg 06/27/18 16:08 Ativan PO Q4 PRN Anxiety/Agitation Losartan Potassium 100 mg 06/28/18 09:00 06/28/18 09:07 Cozaar PO 100 mg DAILY [facility] Administration Magnesium Hydroxide 30 ml 06/27/18 16:08 Milk Of Magnesia PO HS PRN Constipation Multivitamins/Minerals 1 tab 06/28/18 10:30 Therapeutic-M Tab PO DAILY [facility] Thiamine HCl 100 mg 06/28/18 10:30 Vitamin B1 Tab PO DAILY [facility] Venlafaxine HCl 37.5 mg 06/28/18 10:30 Effexor Xr PO DAILY [facility] Past Psychiatric History - Past Psychiatric History Previous Treatment History: Inpatient Pertinent Medical Hx (Current Medical&Sleep Prob, Allergies): Allergies Allergy/AdvReac Type Severity Reaction Status Date / Time No Known Allergies Allergy Verified 06/27/18 08:22 Losartan [Cozaar] 100 mg PO DAILY 06/27/18 buPROPion SR [Wellbutrin SR 150 MG] 150 mg PO DAILY 06/27/18 Review of Systems - Psychiatric Psychiatric: As Per HPI, Abnormal Sleep Pattern, Anhedonia, Anxiety, Auditory Hallucinations, Depression, Difficulty Concentrating, Irritability, Paranoia, Suicidal Ideation Mental Status Examination - Personal Presentation Personal Presentation: Looks stated age - Affect Affect: Constricted, Depressed - Motor Activity Motor Activity: Calm - Reliability in Providing Information Reliability in Providing Information: Fair - Speech Speech: Organized - Mood Mood: Depressed - Formal Thought Process Formal Thought Process: Hallucinations - Hallucinations/Delusions Hallucinations: Auditory - Obsessions/Compulsions Obsessions: No Compulsions: No - Cognitive Functions Orientation: Person, Place, Situation, Time Sensorium: Alert Attention/Concentration: Attentive Estimate of Intelligence: Average Judgement: Imparied, as evidence by: Poor judgement Memory: Recent intact, as evidence by: Ability to recall events of the day, Remote intact, as evidenced by: Abilit to recall sig. life events, Remote intact, as evidenced by: Ability to recall historical events - Risk Risk: Suicidal, Diminished functioning - Strength & Assets Inventory Strength & Assets Inventory: Cooperative DSM 5 DX - DSM 5 DSM 5 Diagnosis: Major Depressive Disorder w/ Psychotic Features vs. Substance Induced Mood and Psychotic Disorder; Cocaine Use Disorder; Alcohol Use Disorder - Recommended/Plan of Treatment Treatment Recommendations and Plan of Treatment: Major Depressive Disorder w/ Psychotic Features vs. Substance Induced Mood and Psychotic Disorder; Cocaine Use Disorder; Alcohol Use Disorder -Admit to psychiatry unit -Start Effexor -Start Risperdal -Ativan PRN; will monitor for signs/symptoms of ETOH withdrawal -Thiamine, Folate -Individual and group therapy -Psychoeducation -Disposition planning Projected ELOS: 5-10 days Discharge Plan and Discharge Criteria: Discharge when patient is psychiatrically stable - Smoking Cessation Smoking Cessation Initiated: No Reason for not providing: Not indicated
[2018-06-28] MEDS: Multivitamin With Minerals Tab PO SCH (13:06)
--- NOTE | 2018-06-28 16:11 | CP.PCM.CON ---
History of Present Illness - History of Present Illness History of Present Illness: 43 yo male with history of depression admitted to psyche unit because of suicidal ideation. Review of Systems - Review of Systems All systems: reviewed and no additional remarkable complaints except (aside from those mentioned above, 12 point system review werre negative by me) Past Patient History - Infectious Disease Hx of Infectious Diseases: None - Tetanus Immunizations Tetanus Immunization: Unknown - Past Medical History & Family History Past Medical History?: Yes - Past Social History Smoking Status: Never Smoked Chewing Tobacco Use: No Cigar Use: No Alcohol: Occasional (binge drinking every other week with one case of beer per sitting) Drugs: Cocaine Home Situation {Lives}: With Family - CARDIAC Hx Cardiac Disorders: Yes (HTN) Hx Hypertension: Yes - PULMONARY Hx Pulmonary Embolism: Yes (took Eliquis for 2 months then stopped) - NEUROLOGICAL Hx Transient Ischemic Attacks (TIA): Yes - HEENT Hx HEENT Problems: No - RENAL Hx Chronic Kidney Disease: No - ENDOCRINE/METABOLIC Hx Endocrine Disorders: No - HEMATOLOGICAL/ONCOLOGICAL Hx Blood Disorders: No Hx Hepatitis C: Yes (as per records, hep c is active) - INTEGUMENTARY Hx Dermatological Problems: No - MUSCULOSKELETAL/RHEUMATOLOGICAL Hx Musculoskeletal Disorders: No - GASTROINTESTINAL Hx Gastrointestinal Disorders: No - GENITOURINARY/GYNECOLOGICAL Hx Genitourinary Disorders: No - PSYCHIATRIC Hx Depression: Yes Hx Substance Use: Yes (cocaine about $100 worth) - SURGICAL HISTORY Hx Surgeries: No - ANESTHESIA Hx Anesthesia: No Hx Anesthesia Reactions: No Hx Malignant Hyperthermia: No Meds Allergies/Adverse Reactions: Allergies Allergy/AdvReac Type Severity Reaction Status Date / Time No Known Allergies Allergy Verified 06/27/18 08:22 - Medications Medications: Current Medications Acetaminophen (Tylenol 325mg Tab) 650 mg PO Q4 PRN PRN Reason: Pain, moderate (4-7) Al Hydrox/Mg Hydrox/Simethicone (Maalox Plus 30 Ml) 30 ml PO Q4 PRN PRN Reason: Dyspepsia Aspirin (Ecotrin) 81 mg PO DAILY [facility] Last Admin: 06/28/18 13:20 Dose: 81 mg Diphenhydramine HCl (Benadryl) 50 mg PO Q6 PRN PRN Reason: Extrapyramidal Symptoms Diphenhydramine HCl (Benadryl) 50 mg IM Q6 PRN PRN Reason: Extrapyramidal S/S Unable PO Diphenhydramine HCl (Benadryl) 50 mg PO HS PRN PRN Reason: Sleep Last Admin: 06/27/18 21:32 Dose: 50 mg Folic Acid (Folic Acid) 1 mg PO DAILY [facility] Last Admin: 06/28/18 13:05 Dose: 1 mg Haloperidol (Haldol) 5 mg PO Q4 PRN PRN Reason: Agitation Haloperidol Lactate (Haldol) 5 mg IM Q4 PRN PRN Reason: Agitation, Unable to Take PO Lorazepam (Ativan) 1 mg IM Q4 PRN PRN Reason: Anxiety/Agitation,Unable PO Lorazepam (Ativan) 1 mg PO Q4 PRN PRN Reason: Anxiety/Agitation Losartan Potassium (Cozaar) 100 mg PO DAILY [facility] Last Admin: 06/28/18 09:07 Dose: 100 mg Magnesium Hydroxide (Milk Of Magnesia) 30 ml PO HS PRN PRN Reason: Constipation Multivitamins/Minerals (Therapeutic-M Tab) 1 tab PO DAILY [facility] Last Admin: 06/28/18 13:06 Dose: 1 tab Risperidone (Risperdal Tab) 0.5 mg PO HS [facility] Thiamine HCl (Vitamin B1 Tab) 100 mg PO DAILY [facility] Last Admin: 06/28/18 13:05 Dose: 100 mg Venlafaxine HCl (Effexor Xr) 37.5 mg PO DAILY [facility] Last Admin: 06/28/18 13:05 Dose: 37.5 mg Physical Exam - Constitutional Appears: No Acute Distress - Head Exam Head Exam: ATRAUMATIC - Eye Exam Eye Exam: absent: Scleral icterus - ENT Exam ENT Exam: Mucous Membranes Moist - Neck Exam Neck exam: Negative for: Meningismus - Respiratory Exam Respiratory Exam: absent: Rales, Rhonchi, Wheezes, Respiratory Distress - Cardiovascular Exam Cardiovascular Exam: REGULAR RHYTHM, +S1, +S2 - GI/Abdominal Exam GI & Abdominal Exam: Soft. absent: Tenderness - Rectal Exam Rectal Exam: Deferred - Extremities Exam Extremities exam: Negative for: calf tenderness, pedal edema - Neurological Exam Neurological exam: Alert, Oriented x3 - Psychiatric Exam Psychiatric exam: Normal Affect - Skin Skin Exam: Dry, Intact Results - Vital Signs Recent Vital Signs: Last Vital Signs Temp 98.5 F 06/28/18 09:09 Pulse 71 06/28/18 09:09 Resp 18 06/28/18 09:09 BP 133/78 06/28/18 09:09 Pulse Ox 98 06/27/18 13:50 - Labs Result Diagrams: 06/27/18 08:52 06/27/18 08:52 Labs: Laboratory Results - last 24 hr 06/28/18 07:52 Triglycerides 154 H Cholesterol 163 LDL Cholesterol Direct 112 HDL Cholesterol 41 Thyroxine (T4) 7.25 TSH 3rd Generation 2.04 Assessment & Plan (1) Suicidal ideations Status: Acute Comment: psyche is managing (2) Depressed Status: Acute Comment: psyche is managing (3) HTN (hypertension) Status: Acute Comment: BP controlled. continue Losartan 100mg PO daily (4) Thromboembolism Status: Resolved Comment: had DVT and PE last year. asymptomatic. stopped taking Eliquis after 2 months. ASA 81mg PO daily
[2018-06-29] MEDS: Multivitamin With Minerals Tab PO SCH (08:48)
--- NOTE | 2018-06-29 09:38 | PCM.PYCHPN ---
Psychiatric Progress Note - Psychiatric Progress Note Patient seen today, length of contact: Pt evaluated, case discussed w/ team, chart reviewed Patient Chief Complaint: I wanted to kill myself Problems Identified/Issues Discussed: Pt reports that he no longer wants to take Effexor and wants to start Wellbutrin again. He continues to report feeling depressed w/ intermittent suicidal ideation w/o specific plan or intent. He continues to have AH at night but reports they are less frequent. Medication Change: Yes (Stop Effexor; Start Wellbutrin) Medical Record Reviewed: Yes Consults ordered or reviewed: Medicine Mental Status Examination - Cognitive Function Orientation: Person, Place, Situation, Time Memory: Intact Attention: WNL Concentration: WNL Association: WNL Fund of Knowledge: [facility] Decription of patient's judgement and insights: Poor I/J - Mood Mood: Depressed - Affect Affect: Constricted, Depressed - Formal Thought Process Formal Thought Process: Hallucinations Psychotic Thoughts and Behaviors: Intermittent AH - Suicidal Ideation Suicidal Ideation: Yes Plan: No current plan/intent - Homicidal Ideation Homicidal Ideation: No Goal/Treatment Plan - Goal/Treatment Plan Need for Continued Stay: Remain at risks for inpatient hospitalization, Severe depression anxiety Progress Toward Problem(s) and Goals/Treatment Plan: Major Depressive Disorder w/ Psychotic Features vs. Substance Induced Mood and Psychotic Disorder; Cocaine Use Disorder; Alcohol Use Disorder -Stop Effexor, Start Wellbutrin -Continue Risperdal -Ativan PRN; will monitor for signs/symptoms of ETOH withdrawal -Thiamine, Folate -Individual and group therapy -Psychoeducation -Disposition planning
[2018-06-30] MEDS: Multivitamin With Minerals Tab PO SCH (08:54)
--- NOTE | 2018-06-30 13:59 | PCM.PYCHPN ---
Psychiatric Progress Note - Psychiatric Progress Note Patient seen today, length of contact: Pt evaluated, case discussed w/ team, chart reviewed Patient Chief Complaint: pt reports anxiety related to pending placement at detox center, concerned about possible relapse. has been seen about unit. staff provided redirection and support. recently had effexor changed to wellbutrin Yesterday). Problems Identified/Issues Discussed: alteration in mood alteration in coping Medical Problems: per chart Diagnostic Results: per psychiatry per medicine per nursing per social work per recreational therapy Medication Change: No Medical Record Reviewed: Yes Consults ordered or reviewed: pt being followed by hospitalist Mental Status Examination - Cognitive Function Orientation: Person, Place, Situation, Time Memory: Intact Attention: WNL Concentration: WNL Association: WN Fund of Knowledge: [facility] Decription of patient's judgement and insights: impaired - Mood Mood: Depressed - Affect Affect: Constricted, Depressed - Formal Thought Process Formal Thought Process: No Impairment - Suicidal Ideation Suicidal Ideation: Yes - Homicidal Ideation Homicidal Ideation: No Goal/Treatment Plan - Goal/Treatment Plan Need for Continued Stay: Remain at risks for inpatient hospitalization, Severe depression anxiety Progress Toward Problem(s) and Goals/Treatment Plan: inpt milieu-pt with recent change in medications from effexor to wellbutrin per pt request in context admitted anxieties pending detox bed vital signs and clinical observation per protocol and per clinical status adjust medications per clinical status inpt continue to assess mood discharge planning in progress Estimated Date of D/C: 07/01/18 - Smoking Cessation Smoking Cessation Initiated: No Reason for not providing: defers
[2018-07-01] MEDS: Multivitamin With Minerals Tab PO SCH (08:58)
--- NOTE | 2018-07-01 15:01 | PCM.PYCHPN ---
Psychiatric Progress Note - Psychiatric Progress Note Patient seen today, length of contact: Pt evaluated, case discussed w/ team, chart reviewed Patient Chief Complaint: I still feel down Problems Identified/Issues Discussed: pt evaluated continues to present with depressed mood and affect, discussed increasing wellbutrin dose, no reported side effects, continues to have urges for cocaine use, motivational therapy provided, pt agreed to start inpatient rehab, continues to be hightrisk for relapse, denied suicidal or homicidal ideation denied command hallucinations, encouraged pt to attend groups DSM 5 Symptoms Update: depression alcohol abuse cocaine abuse Medication Change: Yes (increase wellbutrin) Medical Record Reviewed: Yes Mental Status Examination - Cognitive Function Orientation: Person, Place, Situation, Time Memory: Intact Attention: WNL Concentration: WNL Association: WNL Fund of Knowledge: WNL - Mood Mood: Depressed - Affect Affect: Constricted, Depressed - Formal Thought Process Formal Thought Process: No Impairment - Suicidal Ideation Suicidal Ideation: No - Homicidal Ideation Homicidal Ideation: No Goal/Treatment Plan - Goal/Treatment Plan Need for Continued Stay: Remain at risks for inpatient hospitalization, Severe depression anxiety Progress Toward Problem(s) and Goals/Treatment Plan: wellbutrin 150mg bid trazodone 50mg qhs discontinue risperidone referral to inpatient rehab as pt is high risk for relapse Estimated Date of D/C: 07/04/18
[2018-07-02 09:02] VITALS: RESP 18
[2018-07-02] MEDS: Multivitamin With Minerals Tab PO SCH (09:16)
--- NOTE | 2018-07-02 16:39 | PCM.PYCHPN ---
Psychiatric Progress Note - Psychiatric Progress Note Patient seen today, length of contact: Pt evaluated, case discussed w/ team, chart reviewed Patient Chief Complaint: I had poor sleep yesterday Problems Identified/Issues Discussed: pt evaluated , reported feeling down, and anxious, reported poor sleep, discussed starting seroquel, , pt continues to have cravings, discussed avoiding triggers, continues to be a high risk for relapse, agreed to start inpatient r ehab denied suicidal or homicidal ideation denied command hallucinations, encouraged pt to attend groups DSM 5 Symptoms Update: depression cocaine abuse Medication Change: Yes (start seroquel) Medical Record Reviewed: Yes Mental Status Examination - Cognitive Function Orientation: Person, Place, Situation, Time Memory: Intact Attention: WNL Concentration: WNL Association: WNL Fund of Knowledge: WNL - Mood Mood: Depressed - Affect Affect: Constricted, Depressed - Formal Thought Process Formal Thought Process: No Impairment - Suicidal Ideation Suicidal Ideation: No - Homicidal Ideation Homicidal Ideation: No Goal/Treatment Plan - Goal/Treatment Plan Need for Continued Stay: Remain at risks for inpatient hospitalization, Severe depression anxiety Progress Toward Problem(s) and Goals/Treatment Plan: wellbutrin 150mg bid discontinue trazodone 50mg qhs start seroquel 50mg qhs referral to inpatient rehab as pt is high risk for relapse Estimated Date of D/C: 07/04/18
[2018-07-02] MEDS: Alum-Mag Hydrox-Simethicone Susp (30 mL) PO PRN (17:18)
[2018-07-03] MEDS: Multivitamin With Minerals Tab PO SCH (09:08)
--- NOTE | 2018-07-03 12:21 | PCM.PYCHPN ---
Psychiatric Progress Note - Psychiatric Progress Note Patient seen today, length of contact: Pt evaluated, case discussed w/ team, chart reviewed Patient Chief Complaint: I'm feeling better Problems Identified/Issues Discussed: Pt reports that his mood is improving. He is more goal oriented. We discussed the dangers of substance abuse. He reports improved sleep. NO AH/VH/SI/HI. No adverse effects to medications reported. Medication Change: No Medical Record Reviewed: Yes Consults ordered or reviewed: Medicine Mental Status Examination - Cognitive Function Orientation: Person, Place, Situation, Time Memory: Intact Attention: WNL Concentration: WNL Association: WNL Fund of Knowledge: [facility] Decription of patient's judgement and insights: Improving I/J - Mood Mood: Depressed - Affect Affect: Broad - Speech Speech: Appropriate - Formal Thought Process Formal Thought Process: No Impairment Psychotic Thoughts and Behaviors: No AH/VH/paranoia/delusions - Suicidal Ideation Suicidal Ideation: No - Homicidal Ideation Homicidal Ideation: No Goal/Treatment Plan - Goal/Treatment Plan Need for Continued Stay: Severe depression anxiety Progress Toward Problem(s) and Goals/Treatment Plan: Major Depressive Disorder w/ Psychotic Features vs. Substance Induced Mood and Psychotic Disorder; Cocaine Use Disorder; Alcohol Use Disorder -Continue Wellbutrin, Seroquel and Trazodone -Thiamine, Folate -Individual and group therapy -Psychoeducation -Disposition planning Estimated Date of D/C: 07/04/18
[2018-07-04] MEDS: Alum-Mag Hydrox-Simethicone Susp (30 mL) PO PRN (00:58)
[2018-07-04] MEDS: Multivitamin With Minerals Tab PO SCH (08:20)
[2018-07-04 08:22] VITALS: BP 138/75
[2018-07-04 09:16] VITALS: PULSE 86; TEMP 97.1
--- NOTE | 2018-07-04 10:03 | PCM.PYCHDC ---
Mental Status Examination - Mental Status Examination Orientation: Person, Place, Situation Memory: Intact Mood: Neutral Affect: Broad Speech: Appropriate Attention: WNL Concentration: WNL Association: WNL Fund of Knowledge: WNL Formal Thought Process: No Impairment Description of patient's judgement and insight: partial insight , fair judgment Suicidal Ideation: No Current Homicidal Ideation?: No Discharge Summary - Discharge Note Reason for Hospitalization: 43 yo male, presents w/ worsening depression, anxiety and suicidal ideation w/ plan to overdose on cocaine and "pain pills" (bought on the street) in the context non-compliance with psychiatric treatment or medications and cocaine and alcohol abuse. Patient reports that prior to admission he became intoxicated on one case of beer and smoked crack cocaine. He continues to have suicidal ideation. He also reports CAH to kill himself which he hears at night. +Sleep/appetite disturbances +Feelings of hopelessness +Anhedonia +Feeling of isolation +paranoia that people are out to get him Consultations:: List each consultation separately and include: 1. Reason for request. 2. Findings. 3. Follow-up Summary of Hospital Course include:: 1. Description of specific treatment plan utilized for patients during their course of treatmen. 2. Summarize the time- course for resolution of acute symptoms and/or regressed behaviors. 3. Describe issues identified and worked on during hospitalization. 4. Describe medication utilized. 5. Describe medical problems identified and treated. 6. Reassessment of suicide risk Summary of Hospital Course: pt on admission presented with depressed mood and affect pt was started on wellbutrin, it was increased to 300mg , no reported side effects motivational therapy was provided in reference to cocaine use on discharge pt was referred to inpatient rehab mental status was stable, pt denied any current suicidal or homicidal ideation denied perceptual disturbances - Diagnosis (1) Cocaine abuse Current Visit: Yes Status: Acute - Final Diagnosis (DSM 5) Condition upon Discharge: FAIR DSM 5: cocaine induced mood disorder with depressive features cocaine abuse depression Disposition: HOME/ ROUTINE Follow-up Treatment Plan: wellbutrin 150mg bid discontinue trazodone 50mg qhs start seroquel 50mg qhs referral to inpatient rehab as pt is high risk for relapse Prescriptions/Medication Reconciliation: RX: Aspirin [Ecotrin] 81 mg PO DAILY 90 Days #90 tabec RX: buPROPion [Wellbutrin] 150 mg PO BID@0900,1300 90 Days #360 tab RX: Losartan [Cozaar] 100 mg PO DAILY 90 Days #90 tab - Antipsychotic Medications Pt discharged on 2 or more routine antipsychotic medications: No
== END 2018-07-04 10:26 | disposition home or self-care (01) | DRG 748 ==
LOC: H.ER 08:07 → H.ERHOLD 13:49 → H.PSYCH 15:27
PROVIDERS: ADMIT Psychiatry & Neurology Psychiatry; ATTEND Psychiatry & Neurology Psychiatry
PROC: HZ52ZZZ Individual Psychotherapy for Substance Abuse Treatment, Cognitive-Behavioral (ICD-10-PCS; principal; 2018-06-27)
PROC: GZHZZZZ Group Psychotherapy (ICD-10-PCS; 2018-06-27)
PROC: GZ58ZZZ Individual Psychotherapy, Cognitive-Behavioral (ICD-10-PCS; 2018-06-27)
DX: F14.14 Cocaine abuse with cocaine-induced mood disorder (principal); R45.851 Suicidal ideations; F10.129 Alcohol abuse with intoxication, unspecified; Y90.5 Blood alcohol level of 100-119 mg/100 ml; F41.9 Anxiety disorder, unspecified; I10 Essential (primary) hypertension; Z91.14 Patient's other noncompliance with medication regimen; Z91.19 Patient's noncompliance with other medical treatment and regimen; F17.210 Nicotine dependence, cigarettes, uncomplicated; Z86.19 Personal history of other infectious and parasitic diseases; Z86.711 Personal history of pulmonary embolism; Z86.73 Personal history of transient ischemic attack (TIA), and cerebral infarction without residual deficits; Z79.899 Other long term (current) drug therapy